=== PATIENT | male | born 1965 | race African-American/Black ===

== ENCOUNTER 2022-02-04 13:17 | Emergency (ER) | payer OTHER ==
[2022-02-04 13:40] VITALS: BP 141/87; PULSE 100; TEMP 97.5; BMI 19.5
[2022-02-04] MEDS ORDERED: KETOROLAC TROMETHAMINE 30 MG/1 ML VIAL IM ONE (14:59)
[2022-02-04] MEDS ORDERED: KETOROLAC TROMETHAMINE 30 MG/1 ML VIAL ONE (15:01)
== END 2022-02-04 15:22 | disposition home or self-care (01) ==
LOC: JERFT 13:17
PROC: 3E0233Z Introduction of Anti-inflammatory into Muscle, Percutaneous Approach (ICD-10-PCS; principal; 2022-02-04)
DX: M54.50 Low back pain, unspecified (principal)
CPT/HCPCS: 99284-25; 99285-25

== ENCOUNTER 2022-02-12 04:43 | Day surgery (SDC) | payer OTHER ==
[2022-02-11 09:48] VITALS: BMI 20.7
[~2022-02-12 04:43] MED LIST: BUPIVACAINE HCL/PF 0.75% 10 ML VIAL MM ONE
[2022-02-12] MEDS ORDERED: LIDOCAINE HCL/PF 1% SDV 5ML VIAL ONE (07:49)
[2022-02-12] MEDS ORDERED: BUPIVACAINE HCL/PF 0.75% 10 ML VIAL ONE (07:49)
[2022-02-12] MEDS ORDERED: LIDOCAINE HCL 1% PRESERVATIVE FREE - 30ML VIAL IJ ONE (10:42)
[2022-02-12] MEDS ORDERED: BUPIVACAINE HCL/PF 0.75% 10 ML VIAL MM ONE (10:48)
[2022-02-12 13:08] VITALS: BP 145/78; PULSE 80; RESP 20; TEMP 97.2
== END 2022-02-12 11:40 | disposition home or self-care (01) ==
LOC: JASU-SURG 04:43
PROVIDERS: ATTEND Pain Medicine Pain Medicine
PROC: BR16YZZ Fluoroscopy of Lumbar Facet Joint(s) using Other Contrast (ICD-10-PCS; 2022-02-12)
PROC: 3E0T3BZ Introduction of Anesthetic Agent into Peripheral Nerves and Plexi, Percutaneous Approach (ICD-10-PCS; principal; 2022-02-12 11:15)
DX: M47.816 Spondylosis without myelopathy or radiculopathy, lumbar region (principal)
CPT/HCPCS: 76000-TC-FY

== ENCOUNTER 2022-02-22 15:28 | Emergency (ER) | payer OTHER ==
[2022-02-22 15:51] VITALS: BP 98/66; PULSE 86; RESP 17; TEMP 98.1; BMI 20.7
[2022-02-22] MEDS ORDERED: MAG HYDROX/AL HYDROX/SIMETH 30 ML UNIT-DOSE CUP PO ONE (16:57)
[2022-02-22] MEDS ORDERED: FAMOTIDINE 20 MG/50 ML IVPB 20 MG/50 ML MG IVPB ONE ×2 (16:57→17:14)
[2022-02-22] MEDS ORDERED: ACETAMINOPHEN 1000 MG/100 ML BAG IVPB ONE (16:57)
[2022-02-22] MEDS ORDERED: SODIUM CHLORIDE 0.9% 500 ML INFUS.BAG IV ONE (16:57)
[2022-02-22] MEDS ORDERED: ACETAMINOPHEN INJECTION 100 ML IVPB ONE (17:14)
[2022-02-22] MEDS ORDERED: MAG HYDROX/AL HYDROX/SIMETH 30 ML UNIT-DOSE CUP ONE (17:14)
[2022-02-22 17:42] LABS: BASO % 0.8 % (0-2.0); EOS % 6.2 % (0-4.5); HEMATOCRIT 40.8 % (35.4-49); HEMOGLOBIN 13.7 GM/dL (11.7-16.9); LYMPH % 42.4 % (8-40); MCH 31.8 pg (25.7-33.7); MCHC 33.7 g/dl (32.0-35.9); MEAN CELL VOLUME 94.4 fl (80-96); MEAN PLT VOLUME 8.1 fl (7.5-11.1); MONO % 9.7 % (3.8-10.2); NEUT % 40.9 % (42.8-82.8); PLATELET COUNT 197 10^3/uL (134-434); RBC 4.32 M/mm3 (4.00-5.60); RDW 12.3 % (11.9-15.9); WHITE BLOOD COUNT 3.4 K/mm3 (4.0-10.0)
[2022-02-22 18:06] LABS: BLOOD UREA NITROGEN 8.7 mg/dL (7-18)
[2022-02-22 18:09] LABS: CREATININE 0.9 mg/dL (0.55-1.3)
[2022-02-22 18:10] LABS: BILIRUBIN,TOTAL 0.5 mg/dL (0.2-1); TOT PROT 7.3 g/dl (6.4-8.2)
== END 2022-02-22 18:54 | disposition home or self-care (01) ==
LOC: JER 15:28
PROC: 3E033GC Introduction of Other Therapeutic Substance into Peripheral Vein, Percutaneous Approach (ICD-10-PCS; principal; 2022-02-22)
DX: R10.84 Generalized abdominal pain (principal)
CPT/HCPCS: 36415; 80053; 82272; 83690; 85025; 99284-25

== ENCOUNTER 2022-04-14 14:15 | Emergency (ER) | payer OTHER ==
[2022-04-14 14:29] VITALS: TEMP 98; BMI 19.4
[2022-04-14] MEDS ORDERED: MAG HYDROX/AL HYDROX/SIMETH -MYLANTA- ORAL SUSPENSION PO ONE (15:53)
[2022-04-14] MEDS ORDERED: FAMOTIDINE 20 MG/50 ML IVPB 20 MG in PREMIX 50 IVPB ONE (15:53)
[2022-04-14] MEDS ORDERED: SODIUM CHLORIDE 1,000 ML IV ONE (15:55)
[2022-04-14] MEDS ORDERED: FAMOTIDINE 20 MG/50 ML IVPB 20 MG/50 ML MG IVPB ONE (16:06)
[2022-04-14] MEDS ORDERED: MAG HYDROX/AL HYDROX/SIMETH 30 ML UNIT-DOSE CUP ONE (16:06)
[2022-04-14 17:00] LABS: BASO % 0.9 % (0-2.0); EOS % 8.7 % (0-4.5); HEMATOCRIT 40.1 % (35.4-49); HEMOGLOBIN 13.3 GM/dL (11.7-16.9); LYMPH % 34.4 % (8-40); MCH 32.1 pg (25.7-33.7); MCHC 33.1 g/dl (32.0-35.9); MEAN CELL VOLUME 97.1 fl (80-96); MEAN PLT VOLUME 8.2 fl (7.5-11.1); MONO % 20.3 % (3.8-10.2); NEUT % 35.7 % (42.8-82.8); PLATELET COUNT 187 10^3/uL (134-434); RBC 4.13 M/mm3 (4.00-5.60); RDW 13.1 % (11.9-15.9); WHITE BLOOD COUNT 2.8 K/mm3 (4.0-10.0)
[2022-04-14 17:23] LABS: INR 0.98 (0.83-1.09); PROTHROMBIN TIME (PATIENT) 11.3 SEC (9.7-13.0)
[2022-04-14 17:24] LABS: ALBUMIN 3.9 g/dl (3.4-5.0); BLOOD UREA NITROGEN 10.9 mg/dL (7-18)
[2022-04-14 17:27] LABS: CREATININE 0.7 mg/dL (0.55-1.3)
[2022-04-14 17:28] LABS: BILIRUBIN,TOTAL 0.3 mg/dL (0.2-1); TOT PROT 7.3 g/dl (6.4-8.2)
[2022-04-14 17:29] LABS: ANISOCYTOSIS 0; MACROCYTOSIS 0
[2022-04-14 21:06] VITALS: BP 123/82; PULSE 98; RESP 18
== END 2022-04-14 21:06 | disposition home or self-care (01) ==
LOC: JER 14:15
PROC: 3E033GC Introduction of Other Therapeutic Substance into Peripheral Vein, Percutaneous Approach (ICD-10-PCS; principal; 2022-04-14)
DX: R06.02 Shortness of breath (principal)
CPT/HCPCS: 36415; 71046-TC-FY; 76705-TC; 80053; 83690; 84484; 85025; 85610; 93005; 93010; 99285-25

== ENCOUNTER 2022-05-24 10:41 | Day surgery (SDC) | payer OTHER ==
[2022-05-20 14:34] VITALS: BMI 19.5
[2022-05-24 10:56] VITALS: RESP 18
[2022-05-24 12:32] VITALS: TEMP 98
[2022-05-24 12:33] VITALS: PULSE 78
[2022-05-24 12:34] VITALS: BP 114/65
== END 2022-05-24 12:48 | disposition home or self-care (01) ==
LOC: FASU-ENDO 10:41
PROVIDERS: ATTEND Internal Medicine Gastroenterology
PROC: 0DJD8ZZ Inspection of Lower Intestinal Tract, Via Natural or Artificial Opening Endoscopic (ICD-10-PCS; principal; 2022-05-24 11:52)
DX: Z12.11 Encounter for screening for malignant neoplasm of colon (principal); Z86.010 Personal history of colon polyps; K57.30 Diverticulosis of large intestine without perforation or abscess without bleeding

== ENCOUNTER 2022-07-02 20:07 | Emergency (ER) | payer OTHER ==
[2022-07-02 20:14] VITALS: BP 112/71; PULSE 95; RESP 18; TEMP 98; BMI 18.8
[2022-07-02] MEDS ORDERED: ASPIRIN 81 MG CHEWABLE TABLETS PO ONE (21:21)
[2022-07-02 22:14] LABS: BASO % 0.6 % (0-2.0); HEMATOCRIT 40.2 % (35.4-49); HEMOGLOBIN 13.1 GM/dL (11.7-16.9); LYMPH % 36.9 % (8-40); MCH 31.3 pg (25.7-33.7); MCHC 32.6 g/dl (32.0-35.9); MEAN CELL VOLUME 96.2 fl (80-96); MEAN PLT VOLUME 8.1 fl (7.5-11.1); MONO % 10.9 % (3.8-10.2); NEUT % 45.6 % (42.8-82.8); PLATELET COUNT 270 10^3/uL (134-434); RBC 4.18 M/mm3 (4.00-5.60); RDW 12.6 % (11.9-15.9); WHITE BLOOD COUNT 4.1 K/mm3 (4.0-10.0)
[2022-07-02] MEDS ORDERED: FAMOTIDINE 20 MG/50 ML IVPB 20 MG/50 ML MG IVPB ONE ×2 (22:18→23:03)
[2022-07-02] MEDS ORDERED: MAG HYDROX/AL HYDROX/SIMETH 30 ML UNIT-DOSE CUP PO ONE (22:18)
[2022-07-02 22:21] LABS: INR 1.07 (0.83-1.09); PROTHROMBIN TIME (PATIENT) 12.3 SEC (9.7-13.0)
[2022-07-02 22:23] LABS: ACTIVATED PTT 36.4 SECONDS (25.2-36.5)
[2022-07-02] MEDS ORDERED: ASPIRIN 81 MG CHEWABLE TABLETS ONE (23:03)
[2022-07-02] MEDS ORDERED: MAG HYDROX/AL HYDROX/SIMETH 30 ML UNIT-DOSE CUP ONE (23:03)
[2022-07-02 23:49] LABS: ALBUMIN 3.8 g/dl (3.4-5.0); BLOOD UREA NITROGEN 13.9 mg/dL (7-18); MAGNESIUM 2.1 mg/dL (1.8-2.4)
[2022-07-02 23:52] LABS: CREATININE 0.9 mg/dL (0.55-1.3)
[2022-07-02 23:55] LABS: BILIRUBIN,TOTAL 0.4 mg/dL (0.2-1); TOT PROT 7.2 g/dl (6.4-8.2)
== END 2022-07-03 00:44 | disposition home or self-care (01) ==
LOC: JER 20:07
PROC: 3E033GC Introduction of Other Therapeutic Substance into Peripheral Vein, Percutaneous Approach (ICD-10-PCS; principal; 2022-07-02)
DX: R07.89 Other chest pain (principal); R06.02 Shortness of breath; R63.8 Other symptoms and signs concerning food and fluid intake
CPT/HCPCS: 0241U-QW; 36415; 71045-TC-FY; 80053; 83735; 84443; 84484; 85025; 85610; 85730; 93005; 93010; 99285-25

== ENCOUNTER 2022-09-14 10:23 | Observation (INO) | payer OTHER ==
[2022-09-14 10:34] VITALS: BMI 17.2
[2022-09-14] MEDS ORDERED: SODIUM CHLORIDE 1,000 ML IV STA (12:44)
[2022-09-14 13:05] LABS: BASO % 0.6 % (0-2.0); EOS % 2.7 % (0-4.5); HEMATOCRIT 42.8 % (35.4-49); HEMOGLOBIN 14.1 GM/dL (11.7-16.9); LYMPH % 21.8 % (8-40); MCH 31.5 pg (25.7-33.7); MCHC 32.9 g/dl (32.0-35.9); MEAN CELL VOLUME 95.8 fl (80-96); MEAN PLT VOLUME 8.7 fl (7.5-11.1); MONO % 6.3 % (3.8-10.2); NEUT % 68.6 % (42.8-82.8); PLATELET COUNT 168 10^3/uL (134-434); RBC 4.47 M/mm3 (4.00-5.60); RDW 13.1 % (11.9-15.9); WHITE BLOOD COUNT 3.2 K/mm3 (4.0-10.0)
[2022-09-14 13:11] LABS: INR 1.03 (0.83-1.09)
[2022-09-14 13:14] LABS: ACTIVATED PTT 28.8 SECONDS (25.2-36.5)
[2022-09-14 13:31] LABS: CALCIUM 8.2 mg/dL (8.5-10.1)
[2022-09-14 13:32] LABS: ALBUMIN 3.5 g/dl (3.4-5.0); BLOOD UREA NITROGEN 13.3 mg/dL (7-18)
[2022-09-14 13:35] LABS: CREATININE 0.6 mg/dL (0.55-1.3)
[2022-09-14 13:36] LABS: BILIRUBIN,TOTAL 0.4 mg/dL (0.2-1); TOT PROT 6.4 g/dl (6.4-8.2)
[2022-09-14 14:26] LABS: HIV INTERPRETATION NEGATIVE (NEGATIVE)
[2022-09-15 08:09] LABS: BASO % 0.4 % (0-2.0); EOS % 6.4 % (0-4.5); HEMATOCRIT 41.8 % (35.4-49); HEMOGLOBIN 14.1 GM/dL (11.7-16.9); LYMPH % 49.4 % (8-40); MCH 32.2 pg (25.7-33.7); MCHC 33.6 g/dl (32.0-35.9); MEAN CELL VOLUME 95.8 fl (80-96); MEAN PLT VOLUME 8.9 fl (7.5-11.1); MONO % 8.2 % (3.8-10.2); NEUT % 35.6 % (42.8-82.8); PLATELET COUNT 173 10^3/uL (134-434); RBC 4.36 M/mm3 (4.00-5.60); RDW 12.9 % (11.9-15.9)
[2022-09-15 08:27] LABS: CALCIUM 8.8 mg/dL (8.5-10.1)
[2022-09-15 08:28] LABS: BLOOD UREA NITROGEN 17.5 mg/dL (7-18)
[2022-09-15 08:31] LABS: CREATININE 0.7 mg/dL (0.55-1.3)
[2022-09-15] MEDS ORDERED: LISINOPRIL 5 MG TABLET ONE (08:52)
[2022-09-15] MEDS: LISINOPRIL 5 MG TABLET PO SCH (09:18)
[2022-09-15] MEDS: HEPARIN NA (PORCINE) 5,000 UNITS/ML 1ML VIAL SQ SCH (22:02)
[2022-09-16] MEDS: HEPARIN NA (PORCINE) 5,000 UNITS/ML 1ML VIAL SQ SCH ×3 (05:44→22:05)
[2022-09-16 08:32] LABS: BILIRUBIN,TOTAL 0.4 mg/dL (0.2-1); BLOOD UREA NITROGEN 11.3 mg/dL (7-18); CALCIUM 9.1 mg/dL (8.5-10.1); CREATININE 0.8 mg/dL (0.55-1.3); TOT PROT 7.7 g/dl (6.4-8.2)
[2022-09-16 08:36] LABS: BASO % 0.5 % (0-2.0); EOS % 5.7 % (0-4.5); HEMATOCRIT 43.7 % (35.4-49); HEMOGLOBIN 14.9 GM/dL (11.7-16.9); LYMPH % 44.5 % (8-40); MCH 32.8 pg (25.7-33.7); MCHC 34.1 g/dl (32.0-35.9); MEAN CELL VOLUME 96.3 fl (80-96); MEAN PLT VOLUME 9.2 fl (7.5-11.1); MONO % 8.1 % (3.8-10.2); NEUT % 41.2 % (42.8-82.8); PLATELET COUNT 186 10^3/uL (134-434); RBC 4.54 M/mm3 (4.00-5.60); RDW 12.8 % (11.9-15.9); WHITE BLOOD COUNT 3.1 K/mm3 (4.0-10.0)
[2022-09-16] MEDS: LISINOPRIL 5 MG TABLET PO SCH (10:15)
[2022-09-16] MEDS ORDERED: INSULIN (NOVOLOG) ASPART 100 UNITS/ML 10ML VIAL ONE (11:11)
[2022-09-17] MEDS: HEPARIN NA (PORCINE) 5,000 UNITS/ML 1ML VIAL SQ SCH ×3 (05:53→22:20)
[2022-09-17] MEDS: LISINOPRIL 5 MG TABLET PO SCH (10:00)
[2022-09-17 21:46] LABS: BASO % 0.9 % (0-2.0); EOS % 6.5 % (0-4.5); HEMATOCRIT 39.2 % (35.4-49); HEMOGLOBIN 13.1 GM/dL (11.7-16.9); LYMPH % 35.8 % (8-40); MCH 32.1 pg (25.7-33.7); MCHC 33.4 g/dl (32.0-35.9); MEAN CELL VOLUME 96.2 fl (80-96); MEAN PLT VOLUME 8.8 fl (7.5-11.1); NEUT % 46.8 % (42.8-82.8); PLATELET COUNT 154 10^3/uL (134-434); RBC 4.07 M/mm3 (4.00-5.60); RDW 12.9 % (11.9-15.9); WHITE BLOOD COUNT 3.2 K/mm3 (4.0-10.0)
[2022-09-17 22:05] LABS: CALCIUM 8.9 mg/dL (8.5-10.1)
[2022-09-17 22:06] LABS: ALBUMIN 3.7 g/dl (3.4-5.0); BLOOD UREA NITROGEN 22.2 mg/dL (7-18); MAGNESIUM 2.1 mg/dL (1.8-2.4)
[2022-09-17 22:09] LABS: CREATININE 0.9 mg/dL (0.55-1.3); PHOSPHOROUS 3.2 mg/dL (2.5-4.9)
[2022-09-17 22:10] LABS: TOT PROT 6.8 g/dl (6.4-8.2)
[2022-09-17 22:11] LABS: BILIRUBIN,TOTAL 0.4 mg/dL (0.2-1)
[2022-09-17] MEDS: POLYETHYLENE GLYCOL (HEALTHYLAX) 3350 17 GM PACKET PO SCH (22:20)
[2022-09-18] MEDS: HEPARIN NA (PORCINE) 5,000 UNITS/ML 1ML VIAL SQ SCH ×3 (06:12→21:35)
[2022-09-18 08:28] LABS: BASO % 0.4 % (0-2.0); EOS % 6.9 % (0-4.5); HEMATOCRIT 44.7 % (35.4-49); HEMOGLOBIN 14.5 GM/dL (11.7-16.9); LYMPH % 36.3 % (8-40); MCH 31.2 pg (25.7-33.7); MCHC 32.5 g/dl (32.0-35.9); MEAN CELL VOLUME 95.9 fl (80-96); MEAN PLT VOLUME 9.2 fl (7.5-11.1); MONO % 11.7 % (3.8-10.2); NEUT % 44.7 % (42.8-82.8); PLATELET COUNT 168 10^3/uL (134-434); RBC 4.66 M/mm3 (4.00-5.60); RDW 13.2 % (11.9-15.9); WHITE BLOOD COUNT 3.1 K/mm3 (4.0-10.0)
[2022-09-18 08:41] LABS: CHLORIDE 101 mmol/L (98-107); SODIUM 141 mmol/L (136-145)
[2022-09-18 09:01] LABS: BLOOD UREA NITROGEN 17.8 mg/dL (7-18)
[2022-09-18 09:02] LABS: ALBUMIN 3.8 g/dl (3.4-5.0); ANION GAP 3 MMOL/L (8-16); CO2 36 mmol/L (21-32); GLUCOSE,RANDOM 81 mg/dL (74-106)
[2022-09-18 09:03] LABS: MAGNESIUM 2.2 mg/dL (1.8-2.4)
[2022-09-18 09:04] LABS: CREATININE 0.7 mg/dL (0.55-1.3); SGPT/ALT 118 U/L (13-61)
[2022-09-18 09:05] LABS: PHOSPHOROUS 4.3 mg/dL (2.5-4.9); SGOT/AST 89 U/L (15-37)
[2022-09-18 09:06] LABS: BILIRUBIN,TOTAL 0.6 mg/dL (0.2-1); TOT PROT 7.3 g/dl (6.4-8.2)
[2022-09-18 09:07] LABS: ALK PHOS 64 U/L (45-117)
[2022-09-18 09:23] LABS: ERYTHROCYTE SEDIMENTATION RATE 4 mm/hr (0-20)
[2022-09-18] MEDS: POLYETHYLENE GLYCOL (HEALTHYLAX) 3350 17 GM PACKET PO SCH ×2 (09:44→21:35)
[2022-09-19] MEDS: HEPARIN NA (PORCINE) 5,000 UNITS/ML 1ML VIAL SQ SCH ×3 (06:34→21:16)
[2022-09-19 06:53] LABS: F001 EGG WHITE <0.10 kU/L (Class 0); F018 BRAZIL NUT < 0.10 kU/L (Class 0); F201 PECAN NUT < 0.10 kU/L (Class 0)
[2022-09-19 08:18] LABS: BASO % 0.4 % (0-2.0); EOS % 7.6 % (0-4.5); HEMATOCRIT 44.1 % (35.4-49); HEMOGLOBIN 14.8 GM/dL (11.7-16.9); LYMPH % 49.7 % (8-40); MCH 32.2 pg (25.7-33.7); MCHC 33.6 g/dl (32.0-35.9); MEAN CELL VOLUME 95.9 fl (80-96); MEAN PLT VOLUME 9.3 fl (7.5-11.1); MONO % 8.6 % (3.8-10.2); NEUT % 33.7 % (42.8-82.8); PLATELET COUNT 189 10^3/uL (134-434); WHITE BLOOD COUNT 2.7 K/mm3 (4.0-10.0)
[2022-09-19 08:32] LABS: CALCIUM 9.1 mg/dL (8.5-10.1)
[2022-09-19 08:33] LABS: BLOOD UREA NITROGEN 15.3 mg/dL (7-18); MAGNESIUM 2.1 mg/dL (1.8-2.4)
[2022-09-19 08:35] LABS: CREATININE 0.7 mg/dL (0.55-1.3)
[2022-09-19 08:37] LABS: BILIRUBIN,TOTAL 0.5 mg/dL (0.2-1); TOT PROT 7.8 g/dl (6.4-8.2)
[2022-09-19 08:45] VITALS: RESP 18
[2022-09-19 08:58] LABS: HEPATITIS B SURFACE AG MATERN NON-REACTIVE (NONREACTIVE)
[2022-09-19 09:18] LABS: BILIRUBIN,DIRECT 0.2 mg/dL (0.0-0.2)
[2022-09-19] MEDS: POLYETHYLENE GLYCOL (HEALTHYLAX) 3350 17 GM PACKET PO SCH ×2 (09:26→21:16)
[2022-09-19] MEDS ORDERED: PANTOPRAZOLE 40 MG TABLET PO SCH (22:00)
[2022-09-20 06:22] VITALS: TEMP 97.7
[2022-09-20] MEDS: HEPARIN NA (PORCINE) 5,000 UNITS/ML 1ML VIAL SQ SCH (06:30)
[2022-09-20 08:09] LABS: BASO % 0.6 % (0-2.0); EOS % 7.5 % (0-4.5); HEMATOCRIT 40.2 % (35.4-49); HEMOGLOBIN 13.6 GM/dL (11.7-16.9); MCH 32.4 pg (25.7-33.7); MCHC 33.9 g/dl (32.0-35.9); MEAN CELL VOLUME 95.5 fl (80-96); MEAN PLT VOLUME 8.7 fl (7.5-11.1); MONO % 11.6 % (3.8-10.2); NEUT % 33.3 % (42.8-82.8); PLATELET COUNT 167 10^3/uL (134-434); RBC 4.21 M/mm3 (4.00-5.60); RDW 13.1 % (11.9-15.9); WHITE BLOOD COUNT 2.5 K/mm3 (4.0-10.0)
[2022-09-20 08:42] LABS: ALBUMIN 3.8 g/dl (3.4-5.0); BLOOD UREA NITROGEN 16.1 mg/dL (7-18); CALCIUM 9.2 mg/dL (8.5-10.1)
[2022-09-20 08:43] LABS: MAGNESIUM 2.2 mg/dL (1.8-2.4)
[2022-09-20 08:44] LABS: PHOSPHOROUS 3.9 mg/dL (2.5-4.9)
[2022-09-20 08:45] LABS: BILIRUBIN,TOTAL 0.5 mg/dL (0.2-1); CREATININE 0.8 mg/dL (0.55-1.3); TOT PROT 7.4 g/dl (6.4-8.2)
[2022-09-20] MEDS: POLYETHYLENE GLYCOL (HEALTHYLAX) 3350 17 GM PACKET PO SCH (09:57)
[2022-09-20 10:03] VITALS: BP 125/74; PULSE 97
== END 2022-09-20 13:50 | disposition home or self-care (01) ==
LOC: JER 10:23 → JERBED 16:38 → J4W 09-15 14:03
PROVIDERS: ADMIT Internal Medicine; ATTEND Internal Medicine
PROC: 3E023GC Introduction of Other Therapeutic Substance into Muscle, Percutaneous Approach (ICD-10-PCS; principal; 2022-09-14)
PROC: 3E0337Z Introduction of Electrolytic and Water Balance Substance into Peripheral Vein, Percutaneous Approach (ICD-10-PCS; 2022-09-14)
DX: K21.9 Gastro-esophageal reflux disease without esophagitis (principal); K57.90 Diverticulosis of intestine, part unspecified, without perforation or abscess without bleeding; R10.9 Unspecified abdominal pain; R42 Dizziness and giddiness; R63.4 Abnormal weight loss; R55 Syncope and collapse; R06.02 Shortness of breath; I10 Essential (primary) hypertension
CPT/HCPCS: 0241U-QW; 36415; 70551-TC; 71045-TC-FY; 71275-TC; 74174-TC; 74177-TC; 74183-TC; 80048; 80053; 82248; 83735; 84100; 84153; 84439; 84443; 84484; 85025; 85379; 85610; 85651; 85730; 86003; 86140; 86301; 86376; 86480; 86682; 86704; 86706; 86709; 87040; 87209; 87338; 87340; 87389; 87517; 87902; 93005; 93010; 93306-TC; 96360; 96372; 99285-25; G0378; J1644; Q9967

== ENCOUNTER 2022-10-14 15:05 | Emergency (ER) | payer OTHER ==
[2022-10-14 15:21] VITALS: TEMP 97.9; BMI 17.2
[2022-10-14] MEDS ORDERED: FAMOTIDINE 10 MG TABLET PO ONE (16:21)
[2022-10-14] MEDS ORDERED: FAMOTIDINE 20 MG TABLET ONE (16:37)
[2022-10-14 18:16] LABS: BASO % 1.3 % (0-2.0); EOS % 4.9 % (0-4.5); HEMATOCRIT 41.6 % (35.4-49); HEMOGLOBIN 13.6 GM/dL (11.7-16.9); LYMPH % 46.5 % (8-40); MCH 31.2 pg (25.7-33.7); MCHC 32.7 g/dl (32.0-35.9); MEAN CELL VOLUME 95.4 fl (80-96); MEAN PLT VOLUME 8.9 fl (7.5-11.1); MONO % 11.6 % (3.8-10.2); NEUT % 35.7 % (42.8-82.8); PLATELET COUNT 158 10^3/uL (134-434); RBC 4.36 M/mm3 (4.00-5.60); RDW 12.9 % (11.9-15.9); WHITE BLOOD COUNT 2.6 K/mm3 (4.0-10.0)
[2022-10-14 18:25] LABS: INR 1.01 (0.83-1.09); PROTHROMBIN TIME (PATIENT) 11.7 SEC (9.7-13.0)
[2022-10-14 18:28] LABS: ACTIVATED PTT 34.6 SECONDS (25.2-36.5)
[2022-10-14 18:33] LABS: ALBUMIN 3.8 g/dl (3.4-5.0); BLOOD UREA NITROGEN 13.8 mg/dL (7-18)
[2022-10-14 18:36] LABS: CREATININE 0.6 mg/dL (0.55-1.3)
[2022-10-14 18:38] LABS: BILIRUBIN,TOTAL 0.4 mg/dL (0.2-1); TOT PROT 7.1 g/dl (6.4-8.2)
[2022-10-14 19:15] VITALS: BP 127/89; PULSE 78; RESP 18
== END 2022-10-14 20:26 | disposition home or self-care (01) ==
LOC: JER 15:05
DX: R07.9 Chest pain, unspecified (principal)
CPT/HCPCS: 36415; 71046-TC-FY; 80053; 84484; 85025; 85610; 85730; 93005; 93010; 99285-25

== ENCOUNTER 2022-11-22 04:29 | Inpatient (IN) | payer OTHER ==
[2022-11-22] MEDS ORDERED: ROCURONIUM BROMIDE 50 MG/5 ML SYRINGE ONE ×2 (15:55→17:36)
[2022-11-22] MEDS ORDERED: PROPOFOL 20 ML ONE (15:55)
[2022-11-22] MEDS ORDERED: SUCCINYLCHOLINE CHLORIDE 200 MG/10 ML SYRINGE ONE (15:55)
[2022-11-22] MEDS ORDERED: MIDAZOLAM HCL 2 MG/2 ML SINGLE DOSE VIAL ONE ×3 (16:11→22:27)
[2022-11-22] MEDS ORDERED: ceFAZolin SODIUM 1 GM VIAL IVPB ONE (16:20)
[2022-11-22] MEDS ORDERED: NEOSTIGMINE METHYLSULFATE 0.5 MG/1 ML - 10 ML MDV ONE (19:01)
[2022-11-22] MEDS ORDERED: ONDANSETRON 4 MG/2 ML VIAL IVPUSH PRN (20:12)
[2022-11-22] MEDS ORDERED: LACTATED RINGERS SOLUTION 1,000 ML IV SCH (20:15)
[2022-11-22 21:26] LABS: ARTERIAL BLD GAS O2 SATURATION 97.6 % (95-98); ARTERIAL BLOOD GAS BASE EXCESS -3.6 mmol/L (-2-2); ARTERIAL BLOOD GAS PO2 171.3 mmHg (80-100)
[2022-11-22 21:27] LABS: ALLENS TEST POSITIVE
[2022-11-22 21:34] LABS: ARTERIAL BLOOD GAS PCO2 > 148.50 mmHg (35-45); ARTERIAL BLOOD GAS pH 6.906 (7.350-7.450)
[2022-11-22] MEDS ORDERED: ASPIRIN 81 MG CHEWABLE TABLETS PO ONE (21:40)
[2022-11-22 21:44] LABS: BASO % 0.2 % (0-2.0); EOS % 0.1 % (0-4.5); HEMATOCRIT 41.3 % (35.4-49); HEMOGLOBIN 13.2 GM/dL (11.7-16.9); MCH 31.1 pg (25.7-33.7); MCHC 32.1 g/dl (32.0-35.9); MEAN CELL VOLUME 96.9 fl (80-96); MEAN PLT VOLUME 8.9 fl (7.5-11.1); MONO % 5.9 % (3.8-10.2); NEUT % 86.8 % (42.8-82.8); PLATELET COUNT 166 10^3/uL (134-434); RBC 4.26 M/mm3 (4.00-5.60); WHITE BLOOD COUNT 11.1 K/mm3 (4.0-10.0)
[2022-11-22] MEDS ORDERED: SODIUM CHLORIDE 1,000 ML IV SCH (21:45)
[2022-11-22 21:56] LABS: INR 1.13 (0.83-1.09); PROTHROMBIN TIME (PATIENT) 13.1 SEC (9.7-13.0)
[2022-11-22] MEDS ORDERED: PROPOFOL 1,000,000 MCG/100 ML VIAL ONE (21:57)
[2022-11-22 22:00] LABS: POTASSIUM 3.9 mmol/L (3.5-5.1)
[2022-11-22 22:03] LABS: BLOOD UREA NITROGEN 9.3 mg/dL (7-18)
[2022-11-22 22:04] LABS: ALBUMIN 3.3 g/dl (3.4-5.0)
[2022-11-22] MEDS ORDERED: SODIUM BICARBONATE 8.4% 50 MEQ/50 ML DISP.SYRIN IVPUSH STA (22:04)
[2022-11-22] MEDS ORDERED: PHENYLEPHRINE HCL 10 MG/1 ML SINGLE DOSE VIAL ONE (22:05)
[2022-11-22] MEDS ORDERED: SODIUM BICARBONATE 8.4% 50 MEQ/50 ML DISP.SYRIN ONE (22:05)
[2022-11-22 22:06] LABS: BILIRUBIN,DIRECT 0.2 mg/dL (0.0-0.2); CREATININE 0.7 mg/dL (0.55-1.3)
[2022-11-22 22:08] LABS: BILIRUBIN,TOTAL 0.4 mg/dL (0.2-1); TOT PROT 6.2 g/dl (6.4-8.2)
[2022-11-22] MEDS ORDERED: LACTATED RINGERS SOLUTION 1,000 ML/1,000 ML INFUS.BAG IV STA (22:08)
[2022-11-22 22:14] LABS: LACTIC ACID 2.4 mmol/L (0.4-2.0)
[2022-11-22] MEDS ORDERED: PHENYLEPHRINE NS PREMIX 50,000 MCG/500 ML BAG CVP SCH (22:15)
[2022-11-22] MEDS ORDERED: MIDAZOLAM HCL 2 MG/2 ML SINGLE DOSE VIAL IVPUSH STA (22:25)
[2022-11-22] MEDS: PROPOFOL 1,000,000 MCG/100 ML VIAL IVPB SCH (22:47)
[2022-11-22] MEDS ORDERED: LACTATED RINGERS SOLUTION 1,000 ML/1,000 ML INFUS.BAG IV SCH (23:15)
[2022-11-22] MEDS: ACETAMINOPHEN 1000 MG/100 ML BAG IVPB SCH (23:26)
[2022-11-22] MEDS: METOCLOPRAMIDE HCL INJECTION 10 MG/2 ML VIAL IVPUSH SCH (23:26)
[2022-11-23] LABS: POTASSIUM 4.3 mmol/L (3.5-5.1)
[2022-11-23 00:01] LABS: CALCIUM 8.2 mg/dL (8.5-10.1)
[2022-11-23 00:03] LABS: INR 1.11 (0.83-1.09); PROTHROMBIN TIME (PATIENT) 12.9 SEC (9.7-13.0)
[2022-11-23 00:06] LABS: ACTIVATED PTT 27.9 SECONDS (25.2-36.5)
[2022-11-23] MEDS: ACETAMINOPHEN 1000 MG/100 ML BAG IVPB SCH ×5 (00:30→16:12)
[2022-11-23 00:43] LABS: BLOOD UREA NITROGEN 10.5 mg/dL (7-18)
[2022-11-23] MEDS ORDERED: ONDANSETRON 4 MG/2 ML VIAL IVPUSH SCH (01:00)
[2022-11-23 03:28] LABS: ARTERIAL BLD GAS O2 SATURATION 99.9 % (95-98); ARTERIAL BLOOD GAS BASE EXCESS 5.9 mmol/L (-2-2); ARTERIAL BLOOD GAS PO2 361.2 mmHg (80-100)
[2022-11-23 03:44] LABS: ALLENS TEST POSITIVE
[2022-11-23 03:45] LABS: VENT MODE V-A/C; VENT RATE 26
[2022-11-23] MEDS: PROPOFOL 1,000,000 MCG/100 ML VIAL IVPB SCH (03:50)
[2022-11-23] MEDS: ALBUTEROL SO4 0.083% IH SOL 2.5 MG/3 ML VIAL.NEB. NEB SCH ×6 (04:07→20:39)
[2022-11-23] MEDS: METOCLOPRAMIDE HCL INJECTION 10 MG/2 ML VIAL IVPUSH SCH ×3 (05:34→21:07)
[2022-11-23] MEDS ORDERED: ALBUTEROL SO4 0.083% IH SOL 2.5 MG/3 ML VIAL.NEB. NEB STA (06:31)
[2022-11-23 07:14] LABS: HEMATOCRIT 35.7 % (35.4-49); HEMOGLOBIN 12.2 GM/dL (11.7-16.9); MCH 31.8 pg (25.7-33.7); MEAN CELL VOLUME 93.5 fl (80-96); MEAN PLT VOLUME 9.2 fl (7.5-11.1); PLATELET COUNT 130 10^3/uL (134-434); RBC 3.82 M/mm3 (4.00-5.60); RDW 12.8 % (11.9-15.9); WHITE BLOOD COUNT 9.8 K/mm3 (4.0-10.0)
[2022-11-23 07:35] LABS: POTASSIUM 3.5 mmol/L (3.5-5.1)
[2022-11-23 07:39] LABS: BLOOD UREA NITROGEN 11.6 mg/dL (7-18); CALCIUM 8.5 mg/dL (8.5-10.1)
[2022-11-23 07:40] LABS: MAGNESIUM 1.4 mg/dL (1.8-2.4); PHOSPHOROUS 1.7 mg/dL (2.5-4.9)
[2022-11-23] MEDS ORDERED: MAGNESIUM SULF 50% (8.12 MEQ/2 ML-1 GM VIAL) IVPB ONE (07:56)
[2022-11-23] MEDS ORDERED: POTASSIUM PHOSPHATE 30 MM in SODIUM CHLORIDE 250 ML IVPB ONE (09:00)
[2022-11-23] MEDS ORDERED: SODIUM CHLORIDE 1,000 ML IV STA (09:00)
[2022-11-23] MEDS ORDERED: KETOROLAC TROMETHAMINE 30 MG/1 ML VIAL IM PRN (09:01)
[2022-11-23] MEDS: ONDANSETRON 4 MG/2 ML VIAL IVPUSH SCH ×2 (09:36→16:13)
[2022-11-23] MEDS: PANTOPRAZOLE SODIUM 40 MG VIAL IVPUSH SCH (09:36)
[2022-11-23] MEDS ORDERED: DOCUSATE SODIUM 100 MG CAPSULE (FP) PO PRN (09:38)
[2022-11-23 11:21] VITALS: BMI 17.6
[2022-11-23] MEDS ORDERED: NAPH,MB-DB/K PH,MBDB POWDER PACKET PO ONE (11:44)
[2022-11-23 15:54] LABS: MAGNESIUM 2.1 mg/dL (1.8-2.4)
[2022-11-23 15:58] LABS: PHOSPHOROUS 5.2 mg/dL (2.5-4.9)
[2022-11-23] MEDS: HEPARIN NA (PORCINE) 5,000 UNITS/ML 1ML VIAL SQ SCH (21:07)
[2022-11-23] MEDS: ATORVASTATIN CA 80 MG TABLET (FP) PO SCH (21:07)
[2022-11-24] MEDS: ALBUTEROL SO4 0.083% IH SOL 2.5 MG/3 ML VIAL.NEB. NEB SCH ×7 (00:05→23:30)
[2022-11-24] MEDS: METOCLOPRAMIDE HCL INJECTION 10 MG/2 ML VIAL IVPUSH SCH ×3 (06:07→21:22)
[2022-11-24] MEDS: ONDANSETRON 4 MG/2 ML VIAL IVPUSH SCH ×3 (06:07→17:41)
[2022-11-24 07:11] LABS: BASO % 0.3 % (0-2.0); EOS % 0.2 % (0-4.5); HEMATOCRIT 35.2 % (35.4-49); HEMOGLOBIN 11.9 GM/dL (11.7-16.9); LYMPH % 9.5 % (8-40); MCH 32.4 pg (25.7-33.7); MCHC 33.8 g/dl (32.0-35.9); MEAN PLT VOLUME 9.3 fl (7.5-11.1); MONO % 6.6 % (3.8-10.2); NEUT % 83.4 % (42.8-82.8); PLATELET COUNT 106 10^3/uL (134-434); RBC 3.66 M/mm3 (4.00-5.60); RDW 13.2 % (11.9-15.9); WHITE BLOOD COUNT 8.7 K/mm3 (4.0-10.0)
[2022-11-24 07:36] LABS: POTASSIUM 4.4 mmol/L (3.5-5.1)
[2022-11-24 07:37] LABS: BLOOD UREA NITROGEN 5.7 mg/dL (7-18); CALCIUM 8.1 mg/dL (8.5-10.1); MAGNESIUM 1.9 mg/dL (1.8-2.4)
[2022-11-24 07:39] LABS: ALBUMIN 2.9 g/dl (3.4-5.0)
[2022-11-24 07:41] LABS: CREATININE 0.6 mg/dL (0.55-1.3); PHOSPHOROUS 3.3 mg/dL (2.5-4.9)
[2022-11-24 07:43] LABS: BILIRUBIN,TOTAL 0.5 mg/dL (0.2-1); TOT PROT 5.7 g/dl (6.4-8.2)
[2022-11-24] MEDS: PANTOPRAZOLE SODIUM 40 MG VIAL IVPUSH SCH (09:36)
[2022-11-24] MEDS: HEPARIN NA (PORCINE) 5,000 UNITS/ML 1ML VIAL SQ SCH ×2 (09:36→21:22)
[2022-11-24] MEDS: oxyCODONE HCL 5 MG TABLET PO PRN ×2 (10:50→21:23)
[2022-11-24] MEDS: ATORVASTATIN CA 80 MG TABLET (FP) PO SCH (21:23)
[2022-11-24] MEDS ORDERED: ALBUTEROL SO4 0.083% IH SOL 2.5 MG/3 ML VIAL.NEB. NEB STA (23:35)
[2022-11-24] MEDS ORDERED: KETOROLAC TROMETHAMINE 30 MG/1 ML VIAL IM PRN (23:35)
[2022-11-24] MEDS ORDERED: DOCUSATE SODIUM 100 MG CAPSULE (FP) PO PRN (23:35)
[2022-11-24] MEDS ORDERED: oxyCODONE HCL 5 MG TABLET PO PRN (23:35)
[2022-11-25] MEDS: ONDANSETRON 4 MG/2 ML VIAL IVPUSH SCH ×3 (02:07→16:12)
[2022-11-25] MEDS: ALBUTEROL SO4 0.083% IH SOL 2.5 MG/3 ML VIAL.NEB. NEB SCH ×5 (04:43→20:05)
[2022-11-25] MEDS: METOCLOPRAMIDE HCL INJECTION 10 MG/2 ML VIAL IVPUSH SCH ×2 (06:01→14:16)
[2022-11-25] MEDS ORDERED: PANTOPRAZOLE SODIUM 40 MG VIAL IVPUSH SCH (10:00)
[2022-11-25] MEDS ORDERED: HEPARIN NA (PORCINE) 5,000 UNITS/ML 1ML VIAL SQ SCH (10:00)
[2022-11-25] MEDS ORDERED: ACETAMINOPHEN 325 MG TABLET (FP) PO PRN (15:37)
[2022-11-25] MEDS ORDERED: ONDANSETRON 4 MG/2 ML VIAL IVPUSH PRN (16:57)
[2022-11-25] MEDS: ATORVASTATIN CA 80 MG TABLET (FP) PO SCH (21:57)
[2022-11-26] MEDS: ALBUTEROL SO4 0.083% IH SOL 2.5 MG/3 ML VIAL.NEB. NEB SCH ×4 (08:10→20:43)
[2022-11-26 08:23] LABS: BASO % 0.3 % (0-2.0); EOS % 0.9 % (0-4.5); HEMATOCRIT 31.2 % (35.4-49); HEMOGLOBIN 10.7 GM/dL (11.7-16.9); LYMPH % 10.5 % (8-40); MCH 32.7 pg (25.7-33.7); MCHC 34.3 g/dl (32.0-35.9); MEAN CELL VOLUME 95.3 fl (80-96); MEAN PLT VOLUME 9.4 fl (7.5-11.1); MONO % 9.1 % (3.8-10.2); NEUT % 79.2 % (42.8-82.8); PLATELET COUNT 105 10^3/uL (134-434); RBC 3.27 M/mm3 (4.00-5.60); RDW 12.6 % (11.9-15.9); WHITE BLOOD COUNT 4.6 K/mm3 (4.0-10.0)
[2022-11-26 08:36] LABS: POTASSIUM 3.8 mmol/L (3.5-5.1)
[2022-11-26 08:43] LABS: ALBUMIN 2.8 g/dl (3.4-5.0); BLOOD UREA NITROGEN 10.8 mg/dL (7-18); CALCIUM 8.4 mg/dL (8.5-10.1); MAGNESIUM 1.8 mg/dL (1.8-2.4)
[2022-11-26 08:44] LABS: CREATININE 0.5 mg/dL (0.55-1.3)
[2022-11-26 08:45] LABS: BILIRUBIN,TOTAL 1.2 mg/dL (0.2-1); TOT PROT 5.6 g/dl (6.4-8.2)
[2022-11-26] MEDS: PANTOPRAZOLE 40 MG TABLET PO SCH (09:58)
[2022-11-26] MEDS: ENOXAPARIN NA (PORCINE) 30 MG/0.3 ML DISP.SYRIN SQ SCH (09:58)
[2022-11-26] MEDS: ATORVASTATIN CA 80 MG TABLET (FP) PO SCH (21:45)
[2022-11-26 22:11] VITALS: RESP 20
[2022-11-26] MEDS ORDERED: MELATONIN 5 MG TABLETS PO ONE (22:17)
[2022-11-27] MEDS: ALBUTEROL SO4 0.083% IH SOL 2.5 MG/3 ML VIAL.NEB. NEB SCH ×2 (07:41→11:30)
[2022-11-27 08:54] LABS: BASO % 0.3 % (0-2.0); EOS % 1.3 % (0-4.5); HEMATOCRIT 33.4 % (35.4-49); HEMOGLOBIN 11.1 GM/dL (11.7-16.9); MCH 31.8 pg (25.7-33.7); MCHC 33.3 g/dl (32.0-35.9); MEAN CELL VOLUME 95.5 fl (80-96); MEAN PLT VOLUME 9.2 fl (7.5-11.1); NEUT % 73.4 % (42.8-82.8); PLATELET COUNT 138 10^3/uL (134-434); RDW 12.2 % (11.9-15.9); WHITE BLOOD COUNT 4.1 K/mm3 (4.0-10.0)
[2022-11-27 09:14] LABS: POTASSIUM 3.8 mmol/L (3.5-5.1)
[2022-11-27 09:21] LABS: CALCIUM 8.6 mg/dL (8.5-10.1)
[2022-11-27 09:22] LABS: BLOOD UREA NITROGEN 9.2 mg/dL (7-18); MAGNESIUM 1.9 mg/dL (1.8-2.4)
[2022-11-27 09:23] LABS: BILIRUBIN,TOTAL 1.3 mg/dL (0.2-1)
[2022-11-27] MEDS: ENOXAPARIN NA (PORCINE) 30 MG/0.3 ML DISP.SYRIN SQ SCH (09:23)
[2022-11-27] MEDS: PANTOPRAZOLE 40 MG TABLET PO SCH (09:23)
[2022-11-27 09:26] LABS: CREATININE 0.5 mg/dL (0.55-1.3)
[2022-11-27 14:51] VITALS: BP 100/62; PULSE 105; TEMP 98.5
== END 2022-11-27 03:00 | DRG 220 ==
LOC: JASU-SURG 04:29 → JERBED 20:24 → JICU 21:52 → J8W 11-24 23:01
PROVIDERS: ADMIT Surgery; ATTEND Nurse Practitioner Acute Care
PROC: 0BJT4ZZ Inspection of Diaphragm, Percutaneous Endoscopic Approach (ICD-10-PCS; 2022-11-22)
PROC: 0DV40ZZ Restriction of Esophagogastric Junction, Open Approach (ICD-10-PCS; 2022-11-22)
PROC: 0DJ08ZZ Inspection of Upper Intestinal Tract, Via Natural or Artificial Opening Endoscopic (ICD-10-PCS; 2022-11-22)
PROC: 0DQ60ZZ Repair Stomach, Open Approach (ICD-10-PCS; 2022-11-22)
PROC: 8E0W0CZ Robotic Assisted Procedure of Trunk Region, Open Approach (ICD-10-PCS; 2022-11-22)
PROC: 5A1935Z Respiratory Ventilation, Less than 24 Consecutive Hours (ICD-10-PCS; 2022-11-22)
PROC: 0BH17EZ Insertion of Endotracheal Airway into Trachea, Via Natural or Artificial Opening (ICD-10-PCS; 2022-11-22)
PROC: 0BQT0ZZ Repair Diaphragm, Open Approach (ICD-10-PCS; principal; 2022-11-22 14:45)
DX: K44.9 Diaphragmatic hernia without obstruction or gangrene (principal); J96.02 Acute respiratory failure with hypercapnia; I95.89 Other hypotension; K21.9 Gastro-esophageal reflux disease without esophagitis; I10 Essential (primary) hypertension; R13.10 Dysphagia, unspecified; R74.01 Elevation of levels of liver transaminase levels; Z53.31 Laparoscopic surgical procedure converted to open procedure; R42 Dizziness and giddiness; K91.81 Other intraoperative complications of digestive system; Y65.8 Other specified misadventures during surgical and medical care
CPT/HCPCS: 36415; 36600; 70450-TC; 70496-TC; 70498-TC; 71045-TC-FY; 74220-TC-FY; 80048; 80053; 80076; 82550; 82553; 82803; 82962; 83036; 83605; 83735; 84100; 84450; 84460; 84484; 85025; 85027; 85384; 85610; 85730; 86850; 86900; 86901; 88305-TC; 93005; 93010; 94002; 94640; 94760; 94761; 97116-GP; 97162-GP; C9803-CS; J1644; U0003; U0005

== ENCOUNTER 2023-03-22 13:03 | Inpatient (IN) | payer OTHER ==
[2023-03-22 16:02] LABS: BASO % 1.3 % (0-2.0); EOS % 1.4 % (0-4.5); HEMATOCRIT 43.3 % (35.4-49); HEMOGLOBIN 14.3 GM/dL (11.7-16.9); LYMPH % 43.6 % (8-40); MCH 30.9 pg (25.7-33.7); MCHC 32.9 g/dl (32.0-35.9); MONO % 8.1 % (3.8-10.2); NEUT % 45.6 % (42.8-82.8); PLATELET COUNT 165 10^3/uL (134-434); RBC 4.61 M/mm3 (4.00-5.60); RDW 13.7 % (11.9-15.9); WHITE BLOOD COUNT 3.4 K/mm3 (4.0-10.0)
[2023-03-22 16:16] LABS: INR 0.97 (0.83-1.09); PROTHROMBIN TIME (PATIENT) 11.3 SEC (9.7-13.0)
[2023-03-22 16:18] LABS: ACTIVATED PTT 34.5 SECONDS (25.2-36.5)
[2023-03-22 16:21] LABS: CALCIUM 8.8 mg/dL (8.5-10.1)
[2023-03-22 16:22] LABS: ALBUMIN 3.7 g/dl (3.4-5.0); BLOOD UREA NITROGEN 10.8 mg/dL (7-18)
[2023-03-22 16:25] LABS: CREATININE 0.6 mg/dL (0.55-1.3)
[2023-03-22 16:27] LABS: BILIRUBIN,TOTAL 0.4 mg/dL (0.2-1); TOT PROT 7.2 g/dl (6.4-8.2)
[2023-03-22] MEDS ORDERED: SODIUM CHLORIDE IV ONE (19:18)
[2023-03-22] MEDS ORDERED: SODIUM CHLORIDE 0.9% 500 ML INFUS.BAG IV ONE (19:19)
[2023-03-22] MEDS ORDERED: MIDAZOLAM HCL 2 MG/2 ML SINGLE DOSE VIAL ONE (23:02)
[2023-03-22] MEDS ORDERED: ROCURONIUM BROMIDE 50 MG/5 ML SYRINGE ONE (23:02)
[2023-03-22] MEDS ORDERED: PROPOFOL 1,000,000 MCG/100 ML VIAL IVPB SCH (23:45)
[2023-03-22 23:48] LABS: ARTERIAL BLD GAS O2 SATURATION 85.6 % (95-98); ARTERIAL BLOOD GAS BASE EXCESS 3.6 mmol/L (-2-2); ARTERIAL BLOOD GAS PO2 58.6 mmHg (80-100); ARTERIAL BLOOD GAS pH 7.269 (7.350-7.450)
[2023-03-22] MEDS ORDERED: ROCURONIUM BROMIDE 50 MG/5 ML VIAL IV ONE (23:48)
[2023-03-22] MEDS ORDERED: MIDAZOLAM HCL 5 MG/1 ML Single Dose Vial IVPUSH ONE (23:48)
[2023-03-22 23:50] LABS: VENT MODE AC; VENT RATE 12
[2023-03-23] MEDS ORDERED: PROPOFOL 1,000,000 MCG/100 ML VIAL ONE (00:02)
[2023-03-23 00:59] LABS: BASO % 0.4 % (0-2.0); EOS % 0.3 % (0-4.5); HEMATOCRIT 42.9 % (35.4-49); HEMOGLOBIN 13.7 GM/dL (11.7-16.9); LYMPH % 25.4 % (8-40); MCH 30.7 pg (25.7-33.7); MCHC 31.8 g/dl (32.0-35.9); MEAN CELL VOLUME 96.5 fl (80-96); MONO % 9.3 % (3.8-10.2); NEUT % 64.6 % (42.8-82.8); PLATELET COUNT 145 10^3/uL (134-434); RBC 4.45 M/mm3 (4.00-5.60); RDW 13.4 % (11.9-15.9)
[2023-03-23 01:28] LABS: POTASSIUM 4.5 mmol/L (3.5-5.1)
[2023-03-23] MEDS ORDERED: CEFTRIAXONE 1 GM in DEXTROSE 5%-WATER - 50 ML IVPB SCH (01:29)
[2023-03-23 01:31] LABS: ALBUMIN 3.4 g/dl (3.4-5.0); CALCIUM 7.8 mg/dL (8.5-10.1); MAGNESIUM 1.9 mg/dL (1.8-2.4)
[2023-03-23 01:32] LABS: BLOOD UREA NITROGEN 10.5 mg/dL (7-18)
[2023-03-23 01:34] LABS: PHOSPHOROUS 4.9 mg/dL (2.5-4.9)
[2023-03-23 01:35] LABS: CREATININE 0.6 mg/dL (0.55-1.3)
[2023-03-23 01:36] LABS: BILIRUBIN,TOTAL 0.3 mg/dL (0.2-1); TOT PROT 6.6 g/dl (6.4-8.2)
[2023-03-23] MEDS ORDERED: RAPID SEQUENCE INTUBATION KIT NR ONE (01:56)
[2023-03-23] MEDS ORDERED: LACTATED RINGERS SOLUTION 1000 ML INFUS.BAG IV ONE (02:00)
[2023-03-23] MEDS: MUPIROCIN 2% TOPICAL OINTMENT FOR DECOLONIZATION NS SCH ×3 (02:20→21:01)
[2023-03-23] MEDS: HEPARIN NA (PORCINE) 5,000 UNITS/ML 1ML VIAL SQ SCH ×4 (02:21→21:01)
[2023-03-23] MEDS: AMINO ACIDS 4.25%/D5W 1,000 ML IV SCH ×2 (02:41→16:51)
[2023-03-23] MEDS ORDERED: PHENYLEPHRINE HCL 10 MG/1 ML SINGLE DOSE VIAL ONE ×2 (03:48→03:51)
[2023-03-23 06:30] LABS: ARTERIAL BLD GAS O2 SATURATION 99.2 % (95-98); ARTERIAL BLOOD GAS BASE EXCESS 6.7 mmol/L (-2-2); ARTERIAL BLOOD GAS PO2 160.2 mmHg (80-100); ARTERIAL BLOOD GAS pH 7.479 (7.350-7.450)
[2023-03-23 06:38] LABS: ALLENS TEST POSITIVE
[2023-03-23 06:39] LABS: VENT MODE A/C; VENT RATE 18
[2023-03-23] MEDS ORDERED: PHENYLEPHRINE NS PREMIX 50,000 MCG/500 ML BAG CVP SCH (06:45)
[2023-03-23 07:27] LABS: BASO % 0.3 % (0-2.0); HEMATOCRIT 41.2 % (35.4-49); HEMOGLOBIN 13.1 GM/dL (11.7-16.9); LYMPH % 5.2 % (8-40); MCH 30.7 pg (25.7-33.7); MCHC 31.9 g/dl (32.0-35.9); MEAN CELL VOLUME 96.4 fl (80-96); NEUT % 87.5 % (42.8-82.8); PLATELET COUNT 148 10^3/uL (134-434); RBC 4.28 M/mm3 (4.00-5.60); RDW 13.4 % (11.9-15.9); WHITE BLOOD COUNT 7.5 K/mm3 (4.0-10.0)
[2023-03-23 07:38] LABS: POTASSIUM 3.9 mmol/L (3.5-5.1)
[2023-03-23 07:44] LABS: CALCIUM 8.4 mg/dL (8.5-10.1)
[2023-03-23 07:45] LABS: ALBUMIN 3.2 g/dl (3.4-5.0); BLOOD UREA NITROGEN 14.7 mg/dL (7-18); MAGNESIUM 1.6 mg/dL (1.8-2.4)
[2023-03-23 07:48] LABS: CREATININE 0.7 mg/dL (0.55-1.3); PHOSPHOROUS 2.4 mg/dL (2.5-4.9)
[2023-03-23 07:49] LABS: BILIRUBIN,TOTAL 0.6 mg/dL (0.2-1); TOT PROT 6.2 g/dl (6.4-8.2)
[2023-03-23 08:04] LABS: INR 1.05 (0.83-1.09); PROTHROMBIN TIME (PATIENT) 12.2 SEC (9.7-13.0)
[2023-03-23 08:05] LABS: EPI CELLS 12 /uL (0-25.1); HYALINE CASTS 1 /uL (0-3.1); PH,URINE 7.5 (5.0-8.0); URINE APPEARANCE CLEAR; URINE BACTERIA 14 /uL (0-1359); URINE BILIRUBIN NEGATIVE (NEGATIVE); URINE COLOR YELLOW; URINE GLUCOSE (UA) NEGATIVE (NEGATIVE); URINE KETONE NEGATIVE (NEGATIVE); URINE LEUK ESTERASE NEGATIVE (NEGATIVE); URINE NITRITE NEGATIVE (NEGATIVE); URINE PROTEIN TRACE (NEGATIVE); URINE RBC 120 /uL (0-23.9); URINE UROBILINOGEN 0.2 mg/dL (0.2-1.0); URINE WBC 8 /uL (0-25.8)
[2023-03-23] MEDS ORDERED: NAPH,MB-DB/K PH,MBDB POWDER PACKET PO ONE (08:30)
[2023-03-23] MEDS ORDERED: MAGNESIUM 1GM/D5W 100ML - 100 ML IVPB IVPB ONE (08:30)
[2023-03-23] MEDS: AMPICILLIN NA/SULBACTAM NA 1.5 GM in SODIUM CHLORIDE 100 ML IVPB SCH ×3 (08:55→21:02)
[2023-03-23] MEDS: PANTOPRAZOLE SODIUM 40 MG VIAL IVPUSH SCH (09:29)
[2023-03-23 12:44] LABS: ARTERIAL BLD GAS O2 SATURATION 98.3 % (95-98); ARTERIAL BLOOD GAS BASE EXCESS -0.5 mmol/L (-2-2); ARTERIAL BLOOD GAS PO2 150.9 mmHg (80-100)
[2023-03-23 12:46] LABS: ALLENS TEST POSITIVE; VENT MODE ST
[2023-03-23 12:47] LABS: VENT RATE 10
[2023-03-23 12:48] LABS: ARTERIAL BLOOD GAS pH 7.185 (7.350-7.450)
[2023-03-23] MEDS: SODIUM CHLORIDE 1,000 ML IV SCH (19:00)
[2023-03-23 20:14] LABS: METHADONE, UR NEGATIVE (NEGATIVE); URINE AMPHETAMINES NEGATIVE (NEGATIVE)
[2023-03-23 20:15] LABS: OPIATES, URI NEGATIVE (NEGATIVE); PHENCYCLIDINE,URINE NEGATIVE (NEGATIVE); URINE BARBITURATES NEGATIVE (NEGATIVE)
[2023-03-23 20:19] LABS: COCAINE, UR NEGATIVE (NEGATIVE); URINE BENZODIAZEPINES POSITIVE (NEGATIVE)
[2023-03-23] MEDS: CHLORHEXIDINE GLUCONATE 4% CLEANSER FOR DECOLONIZATION TP SCH (21:02)
[2023-03-24] MEDS: AMPICILLIN NA/SULBACTAM NA 1.5 GM in SODIUM CHLORIDE 100 ML IVPB SCH ×4 (02:18→21:16)
[2023-03-24] MEDS: AMINO ACIDS 4.25%/D5W 1,000 ML IV SCH ×2 (02:19→13:30)
[2023-03-24] MEDS: HEPARIN NA (PORCINE) 5,000 UNITS/ML 1ML VIAL SQ SCH ×3 (06:17→21:18)
[2023-03-24] MEDS: SODIUM CHLORIDE 1,000 ML IV SCH (06:32)
[2023-03-24 07:27] LABS: BASO % 0.3 % (0-2.0); EOS % 0.1 % (0-4.5); HEMATOCRIT 34.9 % (35.4-49); HEMOGLOBIN 11.5 GM/dL (11.7-16.9); LYMPH % 10.2 % (8-40); MCH 31.7 pg (25.7-33.7); MCHC 32.9 g/dl (32.0-35.9); MEAN CELL VOLUME 96.4 fl (80-96); MEAN PLT VOLUME 8.7 fl (7.5-11.1); MONO % 5.5 % (3.8-10.2); NEUT % 83.9 % (42.8-82.8); PLATELET COUNT 116 10^3/uL (134-434); RBC 3.61 M/mm3 (4.00-5.60); RDW 13.4 % (11.9-15.9); WHITE BLOOD COUNT 9.1 K/mm3 (4.0-10.0)
[2023-03-24 07:41] LABS: POTASSIUM 3.6 mmol/L (3.5-5.1)
[2023-03-24 07:43] LABS: CALCIUM 7.9 mg/dL (8.5-10.1)
[2023-03-24 07:44] LABS: ALBUMIN 2.8 g/dl (3.4-5.0); BLOOD UREA NITROGEN 16.2 mg/dL (7-18); MAGNESIUM 1.8 mg/dL (1.8-2.4)
[2023-03-24 07:47] LABS: CREATININE 0.5 mg/dL (0.55-1.3); PHOSPHOROUS 1.9 mg/dL (2.5-4.9)
[2023-03-24 07:48] LABS: TOT PROT 5.7 g/dl (6.4-8.2)
[2023-03-24 07:49] LABS: BILIRUBIN,TOTAL 0.6 mg/dL (0.2-1)
[2023-03-24] MEDS ORDERED: NAPH,MB-DB/K PH,MBDB POWDER PACKET PO ONE (08:15)
[2023-03-24 09:09] LABS: ARTERIAL BLOOD GAS BASE EXCESS 5.1 mmol/L (-2-2); ARTERIAL BLOOD GAS pH 7.287 (7.350-7.450)
[2023-03-24 09:10] LABS: ALLENS TEST POSITIVE
[2023-03-24] MEDS: PANTOPRAZOLE SODIUM 40 MG VIAL IVPUSH SCH (10:08)
[2023-03-24] MEDS: MUPIROCIN 2% TOPICAL OINTMENT FOR DECOLONIZATION NS SCH ×2 (10:08→21:18)
[2023-03-24 11:12] VITALS: BMI 14.7
[2023-03-24] MEDS: CHLORHEXIDINE GLUCONATE 4% CLEANSER FOR DECOLONIZATION TP SCH (21:18)
[2023-03-25] MEDS: AMINO ACIDS 4.25%/D5W 1,000 ML IV SCH ×2 (00:48→15:49)
[2023-03-25] MEDS: AMPICILLIN NA/SULBACTAM NA 1.5 GM in SODIUM CHLORIDE 100 ML IVPB SCH ×4 (03:41→22:00)
[2023-03-25] MEDS: SODIUM CHLORIDE 1,000 ML IV SCH (03:42)
[2023-03-25] MEDS: HEPARIN NA (PORCINE) 5,000 UNITS/ML 1ML VIAL SQ SCH ×3 (05:54→22:28)
[2023-03-25] MEDS: PANTOPRAZOLE SODIUM 40 MG VIAL IVPUSH SCH (09:17)
[2023-03-25] MEDS: MUPIROCIN 2% TOPICAL OINTMENT FOR DECOLONIZATION NS SCH ×2 (09:17→22:28)
[2023-03-25 10:00] LABS: ARTERIAL BLD GAS O2 SATURATION 98.5 % (95-98); ARTERIAL BLOOD GAS BASE EXCESS 4.5 mmol/L (-2-2); ARTERIAL BLOOD GAS PO2 128.9 mmHg (80-100); ARTERIAL BLOOD GAS pH 7.386 (7.350-7.450)
[2023-03-25 10:02] LABS: ALLENS TEST POSITIVE; VENT MODE ST
[2023-03-25 10:03] LABS: VENT RATE 10
[2023-03-25 10:52] LABS: BASO % 0.2 % (0-2.0); EOS % 0.2 % (0-4.5); HEMATOCRIT 32.7 % (35.4-49); LYMPH % 10.6 % (8-40); MCH 31.4 pg (25.7-33.7); MCHC 33.6 g/dl (32.0-35.9); MEAN CELL VOLUME 93.5 fl (80-96); MEAN PLT VOLUME 8.5 fl (7.5-11.1); MONO % 7.6 % (3.8-10.2); NEUT % 81.4 % (42.8-82.8); PLATELET COUNT 107 10^3/uL (134-434); RDW 13.7 % (11.9-15.9); WHITE BLOOD COUNT 6.8 K/mm3 (4.0-10.0)
[2023-03-25 11:08] LABS: POTASSIUM 3.2 mmol/L (3.5-5.1)
[2023-03-25 11:12] LABS: ALBUMIN 2.5 g/dl (3.4-5.0); BLOOD UREA NITROGEN 10.4 mg/dL (7-18)
[2023-03-25 11:14] LABS: MAGNESIUM 1.6 mg/dL (1.8-2.4)
[2023-03-25 11:15] LABS: CREATININE 0.3 mg/dL (0.55-1.3); PHOSPHOROUS 1.7 mg/dL (2.5-4.9)
[2023-03-25 11:17] LABS: TOT PROT 5.3 g/dl (6.4-8.2)
[2023-03-25 11:51] LABS: ERYTHROCYTE SEDIMENTATION RATE 53 mm/hr (0-20)
[2023-03-25] MEDS ORDERED: POTASSIUM PHOSPHATE 30 MM in DEXTROSE 5%-WATER - 500 ML IVPB ONE (15:09)
[2023-03-25] MEDS ORDERED: MAGNESIUM SULFATE IN WATER 2 GM/50 ML IVPB IVPB ONE (15:10)
[2023-03-25] MEDS: MAGNESIUM OXIDE 400 MG TABLET (FP) PO SCH (23:00)
[2023-03-25] MEDS: CHLORHEXIDINE GLUCONATE 4% CLEANSER FOR DECOLONIZATION TP SCH (23:00)
[2023-03-26] MEDS: AMPICILLIN NA/SULBACTAM NA 1.5 GM in SODIUM CHLORIDE 100 ML IVPB SCH ×4 (04:00→22:30)
[2023-03-26] MEDS: AMINO ACIDS 4.25%/D5W 1,000 ML IV SCH ×2 (06:20→14:09)
[2023-03-26] MEDS: HEPARIN NA (PORCINE) 5,000 UNITS/ML 1ML VIAL SQ SCH ×3 (06:21→22:32)
[2023-03-26 06:24] LABS: ARTERIAL BLD GAS O2 SATURATION 96.8 % (95-98); ARTERIAL BLOOD GAS BASE EXCESS 8.3 mmol/L (-2-2); ARTERIAL BLOOD GAS PO2 96.7 mmHg (80-100); ARTERIAL BLOOD GAS pH 7.345 (7.350-7.450)
[2023-03-26 06:26] LABS: ALLENS TEST POSITIVE
[2023-03-26 06:27] LABS: VENT MODE S/T; VENT RATE 10
[2023-03-26] MEDS: MAGNESIUM OXIDE 400 MG TABLET (FP) PO SCH ×2 (09:29→22:31)
[2023-03-26] MEDS: MUPIROCIN 2% TOPICAL OINTMENT FOR DECOLONIZATION NS SCH ×2 (09:30→22:31)
[2023-03-26] MEDS: POTASSIUM CHLORIDE TABS 20 MEQ TABLET.ER (FP) PO SCH (09:30)
[2023-03-26] MEDS: PANTOPRAZOLE SODIUM 40 MG VIAL IVPUSH SCH (09:30)
[2023-03-26] MEDS: guaiFENesin 600 MG TABLET.ER (FP) PO SCH ×2 (14:05→22:32)
[2023-03-26 17:56] LABS: ARTERIAL BLD GAS O2 SATURATION 98.3 % (95-98); ARTERIAL BLOOD GAS BASE EXCESS 9.3 mmol/L (-2-2); ARTERIAL BLOOD GAS pH 7.395 (7.350-7.450)
[2023-03-26 17:57] LABS: ALLENS TEST POSITIVE
[2023-03-26 18:36] LABS: POTASSIUM 3.1 mmol/L (3.5-5.1)
[2023-03-26 18:39] LABS: CALCIUM 8.3 mg/dL (8.5-10.1)
[2023-03-26 18:40] LABS: ALBUMIN 2.6 g/dl (3.4-5.0); BLOOD UREA NITROGEN 8.5 mg/dL (7-18); MAGNESIUM 1.8 mg/dL (1.8-2.4)
[2023-03-26 18:43] LABS: CREATININE 0.3 mg/dL (0.55-1.3); PHOSPHOROUS 2.3 mg/dL (2.5-4.9)
[2023-03-26 18:44] LABS: BILIRUBIN,TOTAL 0.6 mg/dL (0.2-1); TOT PROT 5.7 g/dl (6.4-8.2)
[2023-03-26] MEDS ORDERED: POTASSIUM PHOSPHATE 30 MM in DEXTROSE 5%-WATER - 500 ML IVPB ONE (19:30)
[2023-03-26] MEDS: CHLORHEXIDINE GLUCONATE 4% CLEANSER FOR DECOLONIZATION TP SCH (22:31)
[2023-03-27] MEDS: HEPARIN NA (PORCINE) 5,000 UNITS/ML 1ML VIAL SQ SCH ×3 (06:13→21:54)
[2023-03-27] MEDS: AMPICILLIN NA/SULBACTAM NA 1.5 GM in SODIUM CHLORIDE 100 ML IVPB SCH ×4 (06:19→21:53)
[2023-03-27] MEDS: AMINO ACIDS 4.25%/D5W 1,000 ML IV SCH ×2 (06:21→14:36)
[2023-03-27 08:05] LABS: HEMATOCRIT 33.3 % (35.4-49); HEMOGLOBIN 10.8 GM/dL (11.7-16.9); MCH 30.7 pg (25.7-33.7); MCHC 32.3 g/dl (32.0-35.9); MEAN CELL VOLUME 95.1 fl (80-96); MEAN PLT VOLUME 9.2 fl (7.5-11.1); PLATELET COUNT 150 10^3/uL (134-434); RDW 13.3 % (11.9-15.9); WHITE BLOOD COUNT 4.8 K/mm3 (4.0-10.0)
[2023-03-27 08:22] LABS: POTASSIUM 3.5 mmol/L (3.5-5.1)
[2023-03-27 08:27] LABS: BLOOD UREA NITROGEN 8.6 mg/dL (7-18); CALCIUM 8.1 mg/dL (8.5-10.1)
[2023-03-27 08:28] LABS: ALBUMIN 2.5 g/dl (3.4-5.0); MAGNESIUM 1.8 mg/dL (1.8-2.4)
[2023-03-27 08:30] LABS: CREATININE 0.3 mg/dL (0.55-1.3); PHOSPHOROUS 4.1 mg/dL (2.5-4.9)
[2023-03-27 08:31] LABS: BILIRUBIN,TOTAL 0.7 mg/dL (0.2-1)
[2023-03-27 08:32] LABS: TOT PROT 5.5 g/dl (6.4-8.2)
[2023-03-27] MEDS: PANTOPRAZOLE SODIUM 40 MG VIAL IVPUSH SCH (09:50)
[2023-03-27] MEDS: MAGNESIUM OXIDE 400 MG TABLET (FP) PO SCH ×3 (09:51→21:55)
[2023-03-27] MEDS: POTASSIUM CHLORIDE TABS 20 MEQ TABLET.ER (FP) PO SCH ×2 (09:51→14:53)
[2023-03-27] MEDS: guaiFENesin 600 MG TABLET.ER (FP) PO SCH ×3 (09:51→21:54)
[2023-03-27] MEDS: MUPIROCIN 2% TOPICAL OINTMENT FOR DECOLONIZATION NS SCH (09:51)
[2023-03-27 11:58] LABS: CSF APPEARANCE CLEAR (CLEAR); CSF COLOR COLORLESS (COLORLESS); CSF WBC 0 mm3 (0-5)
[2023-03-27 12:39] LABS: BF GLUCOSE (CSF ONLY) 71 mg/dL (40-70)
[2023-03-27] MEDS: ACETAMINOPHEN 325 MG TABLET (FP) PO PRN ×2 (16:06→21:54)
[2023-03-28] MEDS: CHLORHEXIDINE GLUCONATE 4% CLEANSER FOR DECOLONIZATION TP SCH (01:03)
[2023-03-28] MEDS: MUPIROCIN 2% TOPICAL OINTMENT FOR DECOLONIZATION NS SCH (01:03)
[2023-03-28] MEDS ORDERED: ACETAMINOPHEN/CAFFEINE/BUTALBITAL 1 TAB PO ONE (05:05)
[2023-03-28] MEDS: HEPARIN NA (PORCINE) 5,000 UNITS/ML 1ML VIAL SQ SCH ×3 (05:22→21:29)
[2023-03-28] MEDS: AMPICILLIN NA/SULBACTAM NA 1.5 GM in SODIUM CHLORIDE 100 ML IVPB SCH ×4 (05:22→21:29)
[2023-03-28 08:17] LABS: POTASSIUM 3.7 mmol/L (3.5-5.1)
[2023-03-28 08:30] LABS: BLOOD UREA NITROGEN 6.1 mg/dL (7-18)
[2023-03-28 08:33] LABS: CALCIUM 8.5 mg/dL (8.5-10.1)
[2023-03-28 08:34] LABS: HEMATOCRIT 32.3 % (35.4-49); HEMOGLOBIN 10.6 GM/dL (11.7-16.9); MCH 31.3 pg (25.7-33.7); MCHC 32.9 g/dl (32.0-35.9); MEAN CELL VOLUME 95.3 fl (80-96); MEAN PLT VOLUME 9.4 fl (7.5-11.1); PLATELET COUNT 163 10^3/uL (134-434); RBC 3.39 M/mm3 (4.00-5.60); RDW 13.4 % (11.9-15.9); WHITE BLOOD COUNT 4.8 K/mm3 (4.0-10.0)
[2023-03-28 08:37] LABS: CREATININE 0.3 mg/dL (0.55-1.3)
[2023-03-28 08:38] LABS: PHOSPHOROUS 3.1 mg/dL (2.5-4.9)
[2023-03-28] MEDS: PANTOPRAZOLE SODIUM 40 MG VIAL IVPUSH SCH (09:42)
[2023-03-28] MEDS: POTASSIUM CHLORIDE TABS 20 MEQ TABLET.ER (FP) PO SCH (09:42)
[2023-03-28] MEDS: guaiFENesin 600 MG TABLET.ER (FP) PO SCH ×2 (09:42→21:29)
[2023-03-28] MEDS: MAGNESIUM OXIDE 400 MG TABLET (FP) PO SCH ×2 (11:01→21:29)
[2023-03-28] MEDS: ACETAMINOPHEN 325 MG TABLET (FP) PO PRN ×2 (11:11→21:29)
[2023-03-28] MEDS ORDERED: KETOROLAC TROMETHAMINE 30 MG/1 ML VIAL IVPUSH ONE (16:22)
[2023-03-28] MEDS ORDERED: CHLORHEXIDINE GLUCONATE 4% CLEANSER FOR DECOLONIZATION TP SCH (22:00)
[2023-03-29] MEDS ORDERED: ACETAMINOPHEN/CAFFEINE/BUTALBITAL 1 TAB PO ONE ×3 (00:06→22:18)
[2023-03-29] MEDS ORDERED: KETOROLAC TROMETHAMINE 15 MG/ML VIAL IVPUSH ONE (00:08)
[2023-03-29] MEDS: AMPICILLIN NA/SULBACTAM NA 1.5 GM in SODIUM CHLORIDE 100 ML IVPB SCH ×3 (03:20→14:22)
[2023-03-29] MEDS: HEPARIN NA (PORCINE) 5,000 UNITS/ML 1ML VIAL SQ SCH ×3 (06:17→21:58)
[2023-03-29 08:20] LABS: ALBUMIN 2.6 g/dl (3.4-5.0)
[2023-03-29 08:22] LABS: BLOOD UREA NITROGEN 7.3 mg/dL (7-18); CALCIUM 8.9 mg/dL (8.5-10.1); MAGNESIUM 2.3 mg/dL (1.8-2.4)
[2023-03-29 08:23] LABS: CREATININE 0.3 mg/dL (0.55-1.3); HEMATOCRIT 32.7 % (35.4-49); HEMOGLOBIN 10.5 GM/dL (11.7-16.9); MCH 30.9 pg (25.7-33.7); MCHC 32.2 g/dl (32.0-35.9); MEAN CELL VOLUME 95.9 fl (80-96); MEAN PLT VOLUME 9.5 fl (7.5-11.1); PHOSPHOROUS 3.5 mg/dL (2.5-4.9); PLATELET COUNT 187 10^3/uL (134-434); RBC 3.41 M/mm3 (4.00-5.60); RDW 13.4 % (11.9-15.9); WHITE BLOOD COUNT 3.4 K/mm3 (4.0-10.0)
[2023-03-29 08:24] LABS: BILIRUBIN,TOTAL 0.5 mg/dL (0.2-1)
[2023-03-29 08:25] LABS: TOT PROT 5.8 g/dl (6.4-8.2)
[2023-03-29] MEDS: PANTOPRAZOLE SODIUM 40 MG VIAL IVPUSH SCH (11:18)
[2023-03-29] MEDS: MAGNESIUM OXIDE 400 MG TABLET (FP) PO SCH ×2 (11:21→21:58)
[2023-03-29] MEDS: POTASSIUM CHLORIDE TABS 20 MEQ TABLET.ER (FP) PO SCH (11:21)
[2023-03-29] MEDS: guaiFENesin 600 MG TABLET.ER (FP) PO SCH ×2 (11:21→21:58)
[2023-03-29] MEDS: ACETAMINOPHEN 325 MG TABLET (FP) PO PRN ×2 (11:22→21:58)
[2023-03-29] MEDS: MELATONIN 5 MG TABLETS PO PRN (22:30)
[2023-03-30] MEDS ORDERED: KETOROLAC TROMETHAMINE 30 MG/1 ML VIAL IVPUSH ONE (03:11)
[2023-03-30] MEDS: HEPARIN NA (PORCINE) 5,000 UNITS/ML 1ML VIAL SQ SCH ×3 (06:33→22:07)
[2023-03-30 08:02] LABS: HEMATOCRIT 34.6 % (35.4-49); HEMOGLOBIN 11.1 GM/dL (11.7-16.9); MCH 30.8 pg (25.7-33.7); MEAN CELL VOLUME 96.1 fl (80-96); MEAN PLT VOLUME 8.6 fl (7.5-11.1); PLATELET COUNT 251 10^3/uL (134-434); RDW 13.3 % (11.9-15.9); WHITE BLOOD COUNT 2.9 K/mm3 (4.0-10.0)
[2023-03-30 08:10] LABS: POTASSIUM 4.5 mmol/L (3.5-5.1)
[2023-03-30 08:16] LABS: CALCIUM 8.9 mg/dL (8.5-10.1)
[2023-03-30 08:17] LABS: ALBUMIN 2.9 g/dl (3.4-5.0); BLOOD UREA NITROGEN 8.8 mg/dL (7-18); MAGNESIUM 2.4 mg/dL (1.8-2.4)
[2023-03-30 08:20] LABS: CREATININE 0.4 mg/dL (0.55-1.3); PHOSPHOROUS 3.6 mg/dL (2.5-4.9)
[2023-03-30 08:21] LABS: TOT PROT 6.5 g/dl (6.4-8.2)
[2023-03-30 08:28] LABS: BILIRUBIN,TOTAL 0.5 mg/dL (0.2-1)
[2023-03-30] MEDS: ACETAMINOPHEN 325 MG TABLET (FP) PO PRN (09:37)
[2023-03-30] MEDS: POTASSIUM CHLORIDE TABS 20 MEQ TABLET.ER (FP) PO SCH (09:37)
[2023-03-30] MEDS: MAGNESIUM OXIDE 400 MG TABLET (FP) PO SCH ×2 (09:37→22:07)
[2023-03-30] MEDS: guaiFENesin 600 MG TABLET.ER (FP) PO SCH ×2 (09:37→22:07)
[2023-03-30] MEDS: PANTOPRAZOLE SODIUM 40 MG VIAL IVPUSH SCH (09:38)
[2023-03-30] MEDS ORDERED: CYCLOBENZAPRINE HCL 5 MG TABLET PO PRN ×2 (11:08→11:25)
[2023-03-30] MEDS ORDERED: MAGNESIUM SULF 50% (8.12 MEQ/2 ML-1 GM VIAL) IVPB ONE ×2 (11:27→11:29)
[2023-03-30] MEDS: CYCLOBENZAPRINE HCL 5 MG TABLET PO SCH ×2 (12:02→17:19)
[2023-03-30 14:46] LABS: ALLENS TEST POSITIVE; ARTERIAL BLD GAS O2 SATURATION 98.1 % (95-98); ARTERIAL BLOOD GAS BASE EXCESS 8.5 mmol/L (-2-2); ARTERIAL BLOOD GAS PO2 120.6 mmHg (80-100); ARTERIAL BLOOD GAS pH 7.368 (7.350-7.450)
[2023-03-30] MEDS: MELATONIN 5 MG TABLETS PO PRN (22:07)
[2023-03-31] MEDS: ACETAMINOPHEN 325 MG TABLET (FP) PO PRN (01:44)
[2023-03-31] MEDS: CYCLOBENZAPRINE HCL 5 MG TABLET PO SCH ×5 (06:15→23:28)
[2023-03-31] MEDS: HEPARIN NA (PORCINE) 5,000 UNITS/ML 1ML VIAL SQ SCH ×3 (06:15→22:35)
[2023-03-31 07:52] LABS: HEMATOCRIT 35.2 % (35.4-49); HEMOGLOBIN 11.9 GM/dL (11.7-16.9); MCH 31.6 pg (25.7-33.7); MCHC 33.8 g/dl (32.0-35.9); MEAN CELL VOLUME 93.6 fl (80-96); PLATELET COUNT 274 10^3/uL (134-434); RBC 3.76 M/mm3 (4.00-5.60); RDW 13.6 % (11.9-15.9); WHITE BLOOD COUNT 2.7 K/mm3 (4.0-10.0)
[2023-03-31 08:05] LABS: POTASSIUM 4.5 mmol/L (3.5-5.1)
[2023-03-31 08:08] LABS: CALCIUM 8.9 mg/dL (8.5-10.1)
[2023-03-31 08:09] LABS: BLOOD UREA NITROGEN 7.8 mg/dL (7-18); MAGNESIUM 2.4 mg/dL (1.8-2.4)
[2023-03-31 08:12] LABS: CREATININE 0.3 mg/dL (0.55-1.3); PHOSPHOROUS 3.8 mg/dL (2.5-4.9)
[2023-03-31 08:13] LABS: BILIRUBIN,TOTAL 0.4 mg/dL (0.2-1)
[2023-03-31 08:14] LABS: TOT PROT 6.8 g/dl (6.4-8.2)
[2023-03-31] MEDS: PANTOPRAZOLE SODIUM 40 MG VIAL IVPUSH SCH (10:22)
[2023-03-31] MEDS: POTASSIUM CHLORIDE TABS 20 MEQ TABLET.ER (FP) PO SCH (10:22)
[2023-03-31] MEDS: guaiFENesin 600 MG TABLET.ER (FP) PO SCH ×2 (10:24→22:36)
[2023-03-31] MEDS: MAGNESIUM OXIDE 400 MG TABLET (FP) PO SCH ×2 (10:24→22:35)
[2023-03-31] MEDS ORDERED: IBUPROFEN 800 MG/8 ML IJ IVPB ONE (10:30)
[2023-03-31] MEDS: IBUPROFEN 800 MG/8 ML IJ IVPB SCH (22:33)
[2023-04-01] MEDS: IBUPROFEN 800 MG/8 ML IJ IVPB SCH ×4 (01:16→17:30)
[2023-04-01] MEDS: CYCLOBENZAPRINE HCL 5 MG TABLET PO SCH ×3 (06:39→17:30)
[2023-04-01] MEDS: HEPARIN NA (PORCINE) 5,000 UNITS/ML 1ML VIAL SQ SCH ×3 (06:42→22:31)
[2023-04-01 08:36] LABS: HEMATOCRIT 35.2 % (35.4-49); MCH 31.9 pg (25.7-33.7); MCHC 34.1 g/dl (32.0-35.9); MEAN CELL VOLUME 93.7 fl (80-96); MEAN PLT VOLUME 7.3 fl (7.5-11.1); PLATELET COUNT 266 10^3/uL (134-434); RBC 3.75 M/mm3 (4.00-5.60); RDW 13.3 % (11.9-15.9)
[2023-04-01 08:41] LABS: WHITE BLOOD COUNT 1.9 K/mm3 (4.0-10.0)
[2023-04-01 08:54] LABS: POTASSIUM 4.8 mmol/L (3.5-5.1)
[2023-04-01 09:04] LABS: ALBUMIN 3.1 g/dl (3.4-5.0); BLOOD UREA NITROGEN 5.3 mg/dL (7-18); CALCIUM 8.7 mg/dL (8.5-10.1); MAGNESIUM 2.3 mg/dL (1.8-2.4)
[2023-04-01 09:06] LABS: PHOSPHOROUS 3.5 mg/dL (2.5-4.9)
[2023-04-01 09:07] LABS: BILIRUBIN,TOTAL 0.5 mg/dL (0.2-1); CREATININE 0.4 mg/dL (0.55-1.3); TOT PROT 6.4 g/dl (6.4-8.2)
[2023-04-01] MEDS: MAGNESIUM OXIDE 400 MG TABLET (FP) PO SCH ×2 (10:26→22:31)
[2023-04-01] MEDS: POTASSIUM CHLORIDE TABS 20 MEQ TABLET.ER (FP) PO SCH (10:26)
[2023-04-01] MEDS: PANTOPRAZOLE SODIUM 40 MG VIAL IVPUSH SCH (10:26)
[2023-04-01] MEDS: guaiFENesin 600 MG TABLET.ER (FP) PO SCH ×2 (10:27→22:31)
[2023-04-02] MEDS: IBUPROFEN 800 MG/8 ML IJ IVPB SCH ×4 (00:04→17:32)
[2023-04-02] MEDS: CYCLOBENZAPRINE HCL 5 MG TABLET PO SCH ×4 (00:07→17:32)
[2023-04-02] MEDS: HEPARIN NA (PORCINE) 5,000 UNITS/ML 1ML VIAL SQ SCH (05:47)
[2023-04-02 09:18] LABS: CHLORIDE 92 mmol/L (98-107); POTASSIUM 4.2 mmol/L (3.5-5.1); SODIUM 137 mmol/L (136-145)
[2023-04-02 09:23] LABS: CALCIUM 8.6 mg/dL (8.5-10.1); GLUCOSE,RANDOM 125 mg/dL (74-106)
[2023-04-02 09:24] LABS: ALBUMIN 3.4 g/dl (3.4-5.0); BLOOD UREA NITROGEN 8.9 mg/dL (7-18); MAGNESIUM 2.3 mg/dL (1.8-2.4)
[2023-04-02 09:25] LABS: HEMATOCRIT 36.9 % (35.4-49); HEMOGLOBIN 11.8 GM/dL (11.7-16.9); MCH 30.9 pg (25.7-33.7); MEAN CELL VOLUME 96.5 fl (80-96); MEAN PLT VOLUME 7.8 fl (7.5-11.1); PLATELET COUNT 308 10^3/uL (134-434); RBC 3.82 M/mm3 (4.00-5.60); WHITE BLOOD COUNT 2.2 K/mm3 (4.0-10.0)
[2023-04-02 09:26] LABS: PHOSPHOROUS 3.5 mg/dL (2.5-4.9); SGPT/ALT 162 U/L (13-61)
[2023-04-02 09:27] LABS: CREATININE 0.4 mg/dL (0.55-1.3); SGOT/AST 50 U/L (15-37)
[2023-04-02 09:28] LABS: BILIRUBIN,TOTAL 0.5 mg/dL (0.2-1); TOT PROT 6.8 g/dl (6.4-8.2)
[2023-04-02 09:29] LABS: ALK PHOS 210 U/L (45-117)
[2023-04-02 09:34] LABS: ANION GAP 0 MMOL/L (8-16); CO2 > 45 mmol/L (21-32)
[2023-04-02] MEDS: PANTOPRAZOLE SODIUM 40 MG VIAL IVPUSH SCH (10:26)
[2023-04-02] MEDS: MAGNESIUM OXIDE 400 MG TABLET (FP) PO SCH ×2 (10:26→23:01)
[2023-04-02] MEDS: guaiFENesin 600 MG TABLET.ER (FP) PO SCH ×2 (10:26→22:16)
[2023-04-02] MEDS: POTASSIUM CHLORIDE TABS 20 MEQ TABLET.ER (FP) PO SCH (10:26)
[2023-04-02] MEDS: ENOXAPARIN NA (PORCINE) 30 MG/0.3 ML DISP.SYRIN SQ SCH (17:32)
[2023-04-03] MEDS: IBUPROFEN 800 MG/8 ML IJ IVPB SCH ×4 (06:26→17:30)
[2023-04-03] MEDS: CYCLOBENZAPRINE HCL 5 MG TABLET PO SCH ×4 (06:26→17:31)
[2023-04-03 08:25] LABS: BASO % 0.4 % (0-2.0); EOS % 0.7 % (0-4.5); HEMATOCRIT 35.4 % (35.4-49); HEMOGLOBIN 11.5 GM/dL (11.7-16.9); LYMPH % 25.4 % (8-40); MCHC 32.4 g/dl (32.0-35.9); MEAN CELL VOLUME 95.7 fl (80-96); MEAN PLT VOLUME 8.1 fl (7.5-11.1); MONO % 12.8 % (3.8-10.2); NEUT % 60.7 % (42.8-82.8); PLATELET COUNT 305 10^3/uL (134-434); RDW 12.9 % (11.9-15.9); WHITE BLOOD COUNT 2.9 K/mm3 (4.0-10.0)
[2023-04-03 08:36] LABS: POTASSIUM 4.8 mmol/L (3.5-5.1)
[2023-04-03 08:42] LABS: CALCIUM 8.7 mg/dL (8.5-10.1)
[2023-04-03 08:43] LABS: ALBUMIN 3.3 g/dl (3.4-5.0); BLOOD UREA NITROGEN 11.3 mg/dL (7-18); MAGNESIUM 2.3 mg/dL (1.8-2.4)
[2023-04-03 08:46] LABS: BILIRUBIN,TOTAL 0.9 mg/dL (0.2-1); CREATININE 0.3 mg/dL (0.55-1.3); PHOSPHOROUS 3.2 mg/dL (2.5-4.9); TOT PROT 6.7 g/dl (6.4-8.2)
[2023-04-03] MEDS: POTASSIUM CHLORIDE TABS 20 MEQ TABLET.ER (FP) PO SCH (10:23)
[2023-04-03] MEDS: guaiFENesin 600 MG TABLET.ER (FP) PO SCH ×2 (10:23→21:52)
[2023-04-03] MEDS: ENOXAPARIN NA (PORCINE) 30 MG/0.3 ML DISP.SYRIN SQ SCH (10:23)
[2023-04-03] MEDS: PANTOPRAZOLE SODIUM 40 MG VIAL IVPUSH SCH (10:23)
[2023-04-03] MEDS: MAGNESIUM OXIDE 400 MG TABLET (FP) PO SCH (10:23)
[2023-04-03 20:28] LABS: PH,URINE 7.5 (5.0-8.0); URINE APPEARANCE CLEAR; URINE BILIRUBIN NEGATIVE (NEGATIVE); URINE COLOR YELLOW; URINE GLUCOSE (UA) NEGATIVE (NEGATIVE); URINE KETONE NEGATIVE (NEGATIVE); URINE LEUK ESTERASE NEGATIVE (NEGATIVE); URINE NITRITE NEGATIVE (NEGATIVE); URINE PROTEIN NEGATIVE (NEGATIVE); URINE UROBILINOGEN 0.2 mg/dL (0.2-1.0)
[2023-04-03] MEDS: MELATONIN 5 MG TABLETS PO PRN (21:52)
[2023-04-04] MEDS: IBUPROFEN 800 MG/8 ML IJ IVPB SCH ×2 (00:37→06:13)
[2023-04-04] MEDS: MAGNESIUM OXIDE 400 MG TABLET (FP) PO SCH ×3 (03:15→22:10)
[2023-04-04] MEDS: CYCLOBENZAPRINE HCL 5 MG TABLET PO SCH ×5 (06:13→18:18)
[2023-04-04 08:15] LABS: HEMATOCRIT 34.8 % (35.4-49); HEMOGLOBIN 11.7 GM/dL (11.7-16.9); MCH 31.9 pg (25.7-33.7); MCHC 33.6 g/dl (32.0-35.9); MEAN CELL VOLUME 95.1 fl (80-96); MEAN PLT VOLUME 7.4 fl (7.5-11.1); PLATELET COUNT 301 10^3/uL (134-434); RBC 3.66 M/mm3 (4.00-5.60); RDW 13.4 % (11.9-15.9); WHITE BLOOD COUNT 2.7 K/mm3 (4.0-10.0)
[2023-04-04 08:24] LABS: CHLORIDE 89 mmol/L (98-107); POTASSIUM 4.6 mmol/L (3.5-5.1); SODIUM 137 mmol/L (136-145)
[2023-04-04 08:32] LABS: ALBUMIN 3.5 g/dl (3.4-5.0); CALCIUM 8.9 mg/dL (8.5-10.1); GLUCOSE,RANDOM 90 mg/dL (74-106)
[2023-04-04 08:33] LABS: BLOOD UREA NITROGEN 12.2 mg/dL (7-18); MAGNESIUM 2.2 mg/dL (1.8-2.4)
[2023-04-04 08:35] LABS: CREATININE 0.3 mg/dL (0.55-1.3); PHOSPHOROUS 2.9 mg/dL (2.5-4.9); SGPT/ALT 199 U/L (13-61)
[2023-04-04 08:36] LABS: SGOT/AST 68 U/L (15-37)
[2023-04-04 08:37] LABS: BILIRUBIN,TOTAL 0.6 mg/dL (0.2-1); TOT PROT 6.9 g/dl (6.4-8.2)
[2023-04-04 08:38] LABS: ALK PHOS 200 U/L (45-117)
[2023-04-04 08:41] LABS: ANION GAP 3 MMOL/L (8-16); CO2 > 45 mmol/L (21-32)
[2023-04-04] MEDS: POTASSIUM CHLORIDE TABS 20 MEQ TABLET.ER (FP) PO SCH (10:09)
[2023-04-04] MEDS: guaiFENesin 600 MG TABLET.ER (FP) PO SCH ×2 (10:09→22:10)
[2023-04-04] MEDS ORDERED: ALBUTEROL SO4 2.5/IPRATROPIUM 0.5 INH SOL 3 ML VIAL.NEB. NEB ONE (10:10)
[2023-04-04] MEDS: PANTOPRAZOLE 40 MG TABLET PO SCH (10:11)
[2023-04-04] MEDS: BUDESONIDE/FORMETEROL FUMARATE 80/4.5 mcg INHALER IH SCH ×2 (11:10→22:10)
[2023-04-04] MEDS ORDERED: ALBUTEROL SO4 2.5/IPRATROPIUM 0.5 INH SOL 3 ML VIAL.NEB. NEB SCH (12:00)
[2023-04-04] MEDS: predniSONE 20 MG TABLET (UD) PO SCH (12:09)
[2023-04-04] MEDS: ENOXAPARIN NA (PORCINE) 30 MG/0.3 ML DISP.SYRIN SQ SCH (12:12)
[2023-04-04] MEDS: PANTOPRAZOLE SODIUM 40 MG VIAL IVPUSH SCH (12:12)
[2023-04-04] MEDS ORDERED: ALBUTEROL SO4 2.5/IPRATROPIUM 0.5 INH SOL 3 ML VIAL.NEB. NEB PRN ×2 (15:56→15:57)
[2023-04-05] MEDS: CYCLOBENZAPRINE HCL 5 MG TABLET PO SCH ×3 (00:47→12:34)
[2023-04-05 08:11] LABS: POTASSIUM 4.2 mmol/L (3.5-5.1)
[2023-04-05 08:20] LABS: ALBUMIN 3.5 g/dl (3.4-5.0); BLOOD UREA NITROGEN 13.5 mg/dL (7-18); CALCIUM 8.8 mg/dL (8.5-10.1); MAGNESIUM 2.2 mg/dL (1.8-2.4)
[2023-04-05 08:23] LABS: CREATININE 0.4 mg/dL (0.55-1.3); PHOSPHOROUS 3.9 mg/dL (2.5-4.9)
[2023-04-05 08:24] LABS: HEMATOCRIT 34.1 % (35.4-49); HEMOGLOBIN 11.4 GM/dL (11.7-16.9); MCH 32.3 pg (25.7-33.7); MCHC 33.3 g/dl (32.0-35.9); MEAN CELL VOLUME 96.8 fl (80-96); MEAN PLT VOLUME 7.9 fl (7.5-11.1); PLATELET COUNT 327 10^3/uL (134-434); RBC 3.52 M/mm3 (4.00-5.60); RDW 13.2 % (11.9-15.9); WHITE BLOOD COUNT 3.5 K/mm3 (4.0-10.0)
[2023-04-05 08:25] LABS: BILIRUBIN,TOTAL 0.5 mg/dL (0.2-1)
[2023-04-05 09:16] LABS: ARTERIAL BLD GAS O2 SATURATION 99.4 % (95-98); ARTERIAL BLOOD GAS BASE EXCESS 7.9 mmol/L (-2-2); ARTERIAL BLOOD GAS PO2 272.2 mmHg (80-100); ARTERIAL BLOOD GAS pH 7.208 (7.350-7.450)
[2023-04-05 09:33] LABS: ALLENS TEST POSITIVE
[2023-04-05] MEDS: ENOXAPARIN NA (PORCINE) 30 MG/0.3 ML DISP.SYRIN SQ SCH (10:59)
[2023-04-05] MEDS: BUDESONIDE/FORMETEROL FUMARATE 80/4.5 mcg INHALER IH SCH ×2 (11:01→22:30)
[2023-04-05] MEDS: MAGNESIUM OXIDE 400 MG TABLET (FP) PO SCH (11:35)
[2023-04-05] MEDS: POTASSIUM CHLORIDE TABS 20 MEQ TABLET.ER (FP) PO SCH (11:35)
[2023-04-05] MEDS: PANTOPRAZOLE 40 MG TABLET PO SCH (12:22)
[2023-04-05] MEDS: guaiFENesin 600 MG TABLET.ER (FP) PO SCH ×2 (12:22→22:45)
[2023-04-05] MEDS: predniSONE 20 MG TABLET (UD) PO SCH (12:22)
[2023-04-05 15:56] LABS: ARTERIAL BLD GAS O2 SATURATION 98.9 % (95-98); ARTERIAL BLOOD GAS BASE EXCESS 14.3 mmol/L (-2-2); ARTERIAL BLOOD GAS pH 7.417 (7.350-7.450)
[2023-04-05 15:57] LABS: ALLENS TEST POSITIVE
[2023-04-05] MEDS: POTASSIUM CHLORIDE 10 MEQ in DEXTROSE 5%-NORMAL SALINE 1,000 ML IVPB SCH (17:40)
[2023-04-05] MEDS ORDERED: CHLORHEXIDINE GLUCONATE 4% CLEANSER FOR DECOLONIZATION TP SCH (22:00)
[2023-04-05] MEDS: MUPIROCIN 2% TOPICAL OINTMENT FOR DECOLONIZATION NS SCH (22:45)
[2023-04-06 07:38] LABS: BASO % 0.7 % (0-2.0); EOS % 2.2 % (0-4.5); HEMATOCRIT 33.2 % (35.4-49); HEMOGLOBIN 10.8 GM/dL (11.7-16.9); LYMPH % 23.5 % (8-40); MCH 31.6 pg (25.7-33.7); MCHC 32.6 g/dl (32.0-35.9); MEAN PLT VOLUME 7.8 fl (7.5-11.1); MONO % 14.5 % (3.8-10.2); NEUT % 59.1 % (42.8-82.8); PLATELET COUNT 332 10^3/uL (134-434); RBC 3.42 M/mm3 (4.00-5.60); RDW 13.4 % (11.9-15.9); WHITE BLOOD COUNT 2.7 K/mm3 (4.0-10.0)
[2023-04-06 08:10] LABS: POTASSIUM 4.7 mmol/L (3.5-5.1)
[2023-04-06 08:15] LABS: ALBUMIN 3.2 g/dl (3.4-5.0); CALCIUM 8.9 mg/dL (8.5-10.1)
[2023-04-06 08:16] LABS: BLOOD UREA NITROGEN 16.6 mg/dL (7-18); MAGNESIUM 2.1 mg/dL (1.8-2.4)
[2023-04-06 08:19] LABS: CREATININE 0.5 mg/dL (0.55-1.3)
[2023-04-06 08:20] LABS: BILIRUBIN,TOTAL 0.9 mg/dL (0.2-1); TOT PROT 6.4 g/dl (6.4-8.2)
[2023-04-06] MEDS: MUPIROCIN 2% TOPICAL OINTMENT FOR DECOLONIZATION NS SCH (09:50)
[2023-04-06] MEDS: ENOXAPARIN NA (PORCINE) 30 MG/0.3 ML DISP.SYRIN SQ SCH (09:50)
[2023-04-06] MEDS: POTASSIUM CHLORIDE 10 MEQ in DEXTROSE 5%-NORMAL SALINE 1,000 ML IVPB SCH ×3 (09:50→20:50)
[2023-04-06] MEDS: PANTOPRAZOLE 40 MG TABLET PO SCH (09:50)
[2023-04-06] MEDS: guaiFENesin 600 MG TABLET.ER (FP) PO SCH ×2 (09:50→21:48)
[2023-04-06] MEDS: BUDESONIDE/FORMETEROL FUMARATE 80/4.5 mcg INHALER IH SCH ×2 (09:51→23:06)
[2023-04-06] MEDS ORDERED: SODIUM CHLORIDE 500 ML IV STA ×2 (11:30→13:59)
[2023-04-06] MEDS ORDERED: POLYETHYLENE GLYCOL (HEALTHYLAX) 3350 17 GM PACKET PO SCH (11:45)
[2023-04-06] MEDS ORDERED: DOCUSATE SODIUM 100 MG CAPSULE (FP) PO SCH (11:45)
[2023-04-06] MEDS: GLYCERIN 1 RECTAL SUPPOSITORY, ADULT RC ONE ×2 (14:19→17:50)
[2023-04-06] MEDS ORDERED: MELATONIN 5 MG TABLETS PO PRN (19:07)
[2023-04-06] MEDS ORDERED: ALBUTEROL SO4 2.5/IPRATROPIUM 0.5 INH SOL 3 ML VIAL.NEB. NEB PRN (19:07)
[2023-04-06] MEDS: POLYETHYLENE GLYCOL (HEALTHYLAX) 3350 17 GM PACKET PO SCH (21:47)
[2023-04-06] MEDS: SENNOSIDES 8.6MG TABLET (FP) PO SCH (21:48)
[2023-04-06] MEDS ORDERED: MUPIROCIN 2% TOPICAL OINTMENT FOR DECOLONIZATION NS SCH (22:00)
[2023-04-06] MEDS ORDERED: CHLORHEXIDINE GLUCONATE 4% CLEANSER FOR DECOLONIZATION TP SCH (22:00)
[2023-04-07 08:01] LABS: HEMATOCRIT 33.5 % (35.4-49); HEMOGLOBIN 11.2 GM/dL (11.7-16.9); MCH 31.5 pg (25.7-33.7); MCHC 33.3 g/dl (32.0-35.9); MEAN CELL VOLUME 94.6 fl (80-96); MEAN PLT VOLUME 7.7 fl (7.5-11.1); PLATELET COUNT 318 10^3/uL (134-434); RBC 3.54 M/mm3 (4.00-5.60); RDW 13.5 % (11.9-15.9)
[2023-04-07 08:16] LABS: POTASSIUM 4.4 mmol/L (3.5-5.1)
[2023-04-07 08:23] LABS: ALBUMIN 3.1 g/dl (3.4-5.0); BLOOD UREA NITROGEN 9.9 mg/dL (7-18); CALCIUM 8.6 mg/dL (8.5-10.1)
[2023-04-07 08:25] LABS: MAGNESIUM 1.8 mg/dL (1.8-2.4)
[2023-04-07 08:27] LABS: CREATININE 0.4 mg/dL (0.55-1.3); PHOSPHOROUS 2.6 mg/dL (2.5-4.9)
[2023-04-07 08:28] LABS: BILIRUBIN,TOTAL 0.6 mg/dL (0.2-1); TOT PROT 6.5 g/dl (6.4-8.2)
[2023-04-07] MEDS: PANTOPRAZOLE 40 MG TABLET PO SCH (09:28)
[2023-04-07] MEDS: guaiFENesin 600 MG TABLET.ER (FP) PO SCH ×2 (09:28→21:27)
[2023-04-07] MEDS: ENOXAPARIN NA (PORCINE) 30 MG/0.3 ML DISP.SYRIN SQ SCH (09:28)
[2023-04-07] MEDS: BUDESONIDE/FORMETEROL FUMARATE 80/4.5 mcg INHALER IH SCH ×2 (09:28→22:19)
[2023-04-07] MEDS: SENNOSIDES 8.6MG TABLET (FP) PO SCH ×2 (09:29→21:28)
[2023-04-07] MEDS: POLYETHYLENE GLYCOL (HEALTHYLAX) 3350 17 GM PACKET PO SCH ×2 (09:29→21:28)
[2023-04-07] MEDS: POTASSIUM CHLORIDE 10 MEQ in DEXTROSE 5%-NORMAL SALINE 1,000 ML IVPB SCH ×2 (17:47→21:28)
[2023-04-08] MEDS: POTASSIUM CHLORIDE 10 MEQ in DEXTROSE 5%-NORMAL SALINE 1,000 ML IVPB SCH (09:16)
[2023-04-08] MEDS: ENOXAPARIN NA (PORCINE) 30 MG/0.3 ML DISP.SYRIN SQ SCH (09:17)
[2023-04-08] MEDS: POLYETHYLENE GLYCOL (HEALTHYLAX) 3350 17 GM PACKET PO SCH (09:17)
[2023-04-08] MEDS: PANTOPRAZOLE 40 MG TABLET PO SCH (09:17)
[2023-04-08] MEDS: SENNOSIDES 8.6MG TABLET (FP) PO SCH (09:17)
[2023-04-08] MEDS: guaiFENesin 600 MG TABLET.ER (FP) PO SCH (09:18)
[2023-04-08] MEDS: BUDESONIDE/FORMETEROL FUMARATE 80/4.5 mcg INHALER IH SCH (09:18)
[2023-04-08 21:24] VITALS: BP 135/80; PULSE 112; RESP 20; TEMP 98.8
== END 2023-04-08 21:10 | DRG 137 ==
LOC: JER 13:03 → JERBED 21:26 → OBSVTOIN 23:32 → JERBED 23:32 → JICU 03-23 01:01 → J4W 03-25 06:45 → J4S 04-01 17:23 → J4W 04-01 17:24 → JICU 04-05 15:09 → J4S 04-06 17:30
PROVIDERS: ATTEND Internal Medicine
PROC: 009U3ZZ Drainage of Spinal Canal, Percutaneous Approach (ICD-10-PCS; principal; 2023-03-27)
PROC: 0BH17EZ Insertion of Endotracheal Airway into Trachea, Via Natural or Artificial Opening (ICD-10-PCS; 2023-03-27)
PROC: 5A1935Z Respiratory Ventilation, Less than 24 Consecutive Hours (ICD-10-PCS; 2023-03-27)
DX: J69.0 Pneumonitis due to inhalation of food and vomit (principal); K21.9 Gastro-esophageal reflux disease without esophagitis; I10 Essential (primary) hypertension; E78.5 Hyperlipidemia, unspecified; R62.7 Adult failure to thrive; Z68.1 Body mass index [BMI] 19.9 or less, adult; J96.02 Acute respiratory failure with hypercapnia; J96.01 Acute respiratory failure with hypoxia; G70.89 Other specified myoneural disorders; E43 Unspecified severe protein-calorie malnutrition; G62.89 Other specified polyneuropathies; R51.9 Headache, unspecified; G97.1 Other reaction to spinal and lumbar puncture; K59.00 Constipation, unspecified; R00.0 Tachycardia, unspecified; R94.5 Abnormal results of liver function studies; D70.9 Neutropenia, unspecified; M54.2 Cervicalgia; E83.39 Other disorders of phosphorus metabolism; R64 Cachexia
CPT/HCPCS: 0241U-QW; 36415; 36600; 70450-TC; 70490-TC; 71045-TC-FY; 71260-TC; 74176-TC; 76705-TC; 80048; 80053; 80307; 81003; 82085; 82550; 82553; 82607; 82746; 82803; 82945; 82962; 83605; 83735; 83916; 84100; 84157; 84443; 84484; 85025; 85027; 85610; 85651; 85730; 86140; 87040; 87070; 87086; 87205; 87635; 93005; 93010; 93306-TC; 94002; 94010; 94640; 94660; 97116-GP; 97163-GP; 99285-25; G0378; J1644; Q9967

== ENCOUNTER 2023-05-04 10:22 | Inpatient (IN) | payer OTHER ==
[2023-05-04] MEDS ORDERED: SODIUM CHLORIDE 0.9% 500 ML INFUS.BAG IV ONE ×3 (11:10→14:26)
[2023-05-04 11:39] LABS: VENOUS BASE EXCESS 15.6 mmol/L (-2-2); VENOUS O2 SATURATION 17.2 % (70-80)
[2023-05-04 11:41] LABS: BASO % 0.3 % (0-2.0); EOS % 0.2 % (0-4.5); HEMATOCRIT 42.9 % (35.4-49); HEMOGLOBIN 13.7 GM/dL (11.7-16.9); LYMPH % 11.5 % (8-40); MCH 32.6 pg (25.7-33.7); MCHC 31.8 g/dl (32.0-35.9); MEAN CELL VOLUME 102.3 fl (80-96); MEAN PLT VOLUME 9.4 fl (7.5-11.1); MONO % 5.4 % (3.8-10.2); NEUT % 82.6 % (42.8-82.8); PLATELET COUNT 116 10^3/uL (134-434); RDW 13.5 % (11.9-15.9); VENOUS PH 7.061 (7.310-7.410); WHITE BLOOD COUNT 5.2 K/mm3 (4.0-10.0)
[2023-05-04 11:42] LABS: VENOUS PCO2 > 148.5 mmHg (38-52)
[2023-05-04 11:47] LABS: INR 0.97 (0.83-1.09); PROTHROMBIN TIME (PATIENT) 11.3 SEC (9.7-13.0)
[2023-05-04 12:03] LABS: CHLORIDE 91 mmol/L (98-107); POTASSIUM 5.2 mmol/L (3.5-5.1); SODIUM 140 mmol/L (136-145)
[2023-05-04 12:07] LABS: ALBUMIN 3.3 g/dl (3.4-5.0); BLOOD UREA NITROGEN 14.8 mg/dL (7-18); CALCIUM 9.5 mg/dL (8.5-10.1); GLUCOSE,RANDOM 114 mg/dL (74-106); LIPASE 91 U/L (73-393)
[2023-05-04 12:10] LABS: CREATININE 0.5 mg/dL (0.55-1.3); SGOT/AST 100 U/L (15-37); SGPT/ALT 175 U/L (13-61)
[2023-05-04 12:11] LABS: BILIRUBIN,TOTAL 0.3 mg/dL (0.2-1); TOT PROT 6.9 g/dl (6.4-8.2)
[2023-05-04 12:12] LABS: ALK PHOS 80 U/L (45-117)
[2023-05-04 12:25] LABS: ANION GAP 4 MMOL/L (8-16); CO2 > 45 mmol/L (21-32)
[2023-05-04 15:16] LABS: URINE APPEARANCE CLEAR; URINE BILIRUBIN NEGATIVE (NEGATIVE); URINE COLOR YELLOW; URINE GLUCOSE (UA) NEGATIVE (NEGATIVE); URINE KETONE NEGATIVE (NEGATIVE); URINE LEUK ESTERASE NEGATIVE (NEGATIVE); URINE NITRITE NEGATIVE (NEGATIVE); URINE PROTEIN TRACE (NEGATIVE); URINE UROBILINOGEN 0.2 mg/dL (0.2-1.0)
[2023-05-04] MEDS ORDERED: HALOPERIDOL LACTATE 5 MG/ML IM ONE ×2 (16:02→16:03)
[2023-05-04] MEDS ORDERED: SODIUM CHLORIDE 1,000 ML IV STA ×3 (16:57→17:43)
[2023-05-04 18:07] LABS: ARTERIAL BLD GAS O2 SATURATION 98.7 % (95-98); ARTERIAL BLOOD GAS BASE EXCESS 9.6 mmol/L (-2-2); ARTERIAL BLOOD GAS PO2 146.1 mmHg (80-100); ARTERIAL BLOOD GAS pH 7.347 (7.350-7.450)
[2023-05-04 18:12] LABS: ALLENS TEST POSITIVE
[2023-05-04 18:15] LABS: VENT RATE 20
[2023-05-04] MEDS ORDERED: LACTULOSE 20 GM/30 ML UDC (FOR RECTAL USE ONLY) PR ONE (19:11)
[2023-05-04] MEDS ORDERED: METOPROLOL TARTRATE 5 MG/5 ML VIAL IVPUSH ONE (21:29)
[2023-05-04] MEDS: MUPIROCIN 2% TOPICAL OINTMENT FOR DECOLONIZATION NS SCH (22:33)
[2023-05-04] MEDS: CHLORHEXIDINE GLUCONATE 4% CLEANSER FOR DECOLONIZATION TP SCH (22:33)
[2023-05-05 07:23] LABS: BASO % 0.1 % (0-2.0); EOS % 0.3 % (0-4.5); HEMATOCRIT 36.8 % (35.4-49); LYMPH % 7.2 % (8-40); MCH 33.3 pg (25.7-33.7); MCHC 32.5 g/dl (32.0-35.9); MEAN CELL VOLUME 102.2 fl (80-96); MEAN PLT VOLUME 9.9 fl (7.5-11.1); MONO % 5.6 % (3.8-10.2); NEUT % 86.8 % (42.8-82.8); PLATELET COUNT 90 10^3/uL (134-434); RDW 13.5 % (11.9-15.9); WHITE BLOOD COUNT 5.2 K/mm3 (4.0-10.0)
[2023-05-05 08:20] LABS: POTASSIUM 4.3 mmol/L (3.5-5.1)
[2023-05-05 08:46] LABS: CALCIUM 8.3 mg/dL (8.5-10.1); MAGNESIUM 1.8 mg/dL (1.8-2.4)
[2023-05-05 08:49] LABS: CREATININE 0.3 mg/dL (0.55-1.3); PHOSPHOROUS 3.4 mg/dL (2.5-4.9)
[2023-05-05 08:51] LABS: BILIRUBIN,TOTAL 0.5 mg/dL (0.2-1); TOT PROT 5.9 g/dl (6.4-8.2)
[2023-05-05 09:48] LABS: ARTERIAL BLD GAS O2 SATURATION 96.6 % (95-98); ARTERIAL BLOOD GAS BASE EXCESS 10.9 mmol/L (-2-2); ARTERIAL BLOOD GAS PO2 96.6 mmHg (80-100); ARTERIAL BLOOD GAS pH 7.332 (7.350-7.450)
[2023-05-05 09:54] LABS: ALLENS TEST POSITIVE
[2023-05-05 09:55] LABS: VENT MODE TPTA
[2023-05-05 09:56] LABS: VENT RATE 16
[2023-05-05] MEDS: ENOXAPARIN NA (PORCINE) 40 MG/0.4 ML DISP.SYRIN SQ SCH (10:00)
[2023-05-05] MEDS: MUPIROCIN 2% TOPICAL OINTMENT FOR DECOLONIZATION NS SCH ×2 (14:00→21:20)
[2023-05-05 15:00] VITALS: BMI 17.6
[2023-05-05] MEDS: CHLORHEXIDINE GLUCONATE 4% CLEANSER FOR DECOLONIZATION TP SCH (21:21)
[2023-05-06 07:43] LABS: HEMATOCRIT 39.4 % (35.4-49); HEMOGLOBIN 12.6 GM/dL (11.7-16.9); MCH 32.3 pg (25.7-33.7); MCHC 31.9 g/dl (32.0-35.9); MEAN CELL VOLUME 101.4 fl (80-96); MEAN PLT VOLUME 9.5 fl (7.5-11.1); PLATELET COUNT 108 10^3/uL (134-434); RBC 3.89 M/mm3 (4.00-5.60); RDW 13.6 % (11.9-15.9); WHITE BLOOD COUNT 4.3 K/mm3 (4.0-10.0)
[2023-05-06 08:05] LABS: CHLORIDE 93 mmol/L (98-107); POTASSIUM 3.7 mmol/L (3.5-5.1); SODIUM 142 mmol/L (136-145)
[2023-05-06 08:09] LABS: CALCIUM 8.9 mg/dL (8.5-10.1)
[2023-05-06 08:10] LABS: BLOOD UREA NITROGEN 7.6 mg/dL (7-18); GLUCOSE,RANDOM 81 mg/dL (74-106); MAGNESIUM 1.9 mg/dL (1.8-2.4)
[2023-05-06 08:12] LABS: CREATININE 0.3 mg/dL (0.55-1.3); PHOSPHOROUS 2.2 mg/dL (2.5-4.9); SGOT/AST 44 U/L (15-37); SGPT/ALT 105 U/L (13-61)
[2023-05-06 08:13] LABS: BILIRUBIN,TOTAL 0.6 mg/dL (0.2-1); TOT PROT 5.9 g/dl (6.4-8.2)
[2023-05-06 08:16] LABS: ALK PHOS 75 U/L (45-117)
[2023-05-06 08:20] LABS: ANION GAP 4 MMOL/L (8-16); CO2 > 45 mmol/L (21-32)
[2023-05-06] MEDS: MULTIVIT-MINERALS ORAL LIQUID PO SCH (09:55)
[2023-05-06] MEDS: ENOXAPARIN NA (PORCINE) 40 MG/0.4 ML DISP.SYRIN SQ SCH (09:55)
[2023-05-06] MEDS: MUPIROCIN 2% TOPICAL OINTMENT FOR DECOLONIZATION NS SCH ×2 (09:55→21:21)
[2023-05-06 12:57] LABS: ARTERIAL BLD GAS O2 SATURATION 99.3 % (95-98); ARTERIAL BLOOD GAS PO2 249.7 mmHg (80-100)
[2023-05-06 13:00] LABS: ALLENS TEST POSITIVE
[2023-05-06 13:02] LABS: ARTERIAL BLOOD GAS pH 7.195 (7.350-7.450)
[2023-05-06] MEDS ORDERED: LACTATED RINGERS SOLUTION 1000 ML INFUS.BAG IV ONE (15:10)
[2023-05-06 16:06] LABS: ARTERIAL BLD GAS O2 SATURATION 97.8 % (95-98); ARTERIAL BLOOD GAS BASE EXCESS 18.2 mmol/L (-2-2); ARTERIAL BLOOD GAS PO2 107.8 mmHg (80-100); ARTERIAL BLOOD GAS pH 7.428 (7.350-7.450)
[2023-05-06 16:27] LABS: VENT RATE 16
[2023-05-06] MEDS: CHLORHEXIDINE GLUCONATE 4% CLEANSER FOR DECOLONIZATION TP SCH (21:23)
[2023-05-07 07:26] LABS: BASO % 0.3 % (0-2.0); EOS % 1.7 % (0-4.5); HEMATOCRIT 32.1 % (35.4-49); HEMOGLOBIN 10.6 GM/dL (11.7-16.9); LYMPH % 30.4 % (8-40); MCH 33.2 pg (25.7-33.7); MEAN CELL VOLUME 100.6 fl (80-96); MEAN PLT VOLUME 9.3 fl (7.5-11.1); MONO % 13.8 % (3.8-10.2); NEUT % 53.8 % (42.8-82.8); PLATELET COUNT 94 10^3/uL (134-434); RBC 3.19 M/mm3 (4.00-5.60); RDW 13.3 % (11.9-15.9); WHITE BLOOD COUNT 3.2 K/mm3 (4.0-10.0)
[2023-05-07 07:32] LABS: MAGNESIUM 1.9 mg/dL (1.8-2.4)
[2023-05-07 07:37] LABS: PHOSPHOROUS 1.4 mg/dL (2.5-4.9)
[2023-05-07] MEDS ORDERED: ALBUTEROL SO4 2.5/IPRATROPIUM 0.5 INH SOL 3 ML VIAL.NEB. NEB ONE (10:15)
[2023-05-07] MEDS: NAPH,MB-DB/K PH,MBDB POWDER PACKET PO SCH ×3 (11:08→21:43)
[2023-05-07] MEDS: MULTIVIT-MINERALS ORAL LIQUID PO SCH (11:08)
[2023-05-07] MEDS: MUPIROCIN 2% TOPICAL OINTMENT FOR DECOLONIZATION NS SCH ×2 (11:12→21:41)
[2023-05-07] MEDS: ENOXAPARIN NA (PORCINE) 40 MG/0.4 ML DISP.SYRIN SQ SCH (11:12)
[2023-05-07] MEDS ORDERED: SIMETHICONE 80 MG TAB.CHEW (FP) PO PRN (14:00)
[2023-05-07] MEDS: POLYETHYLENE GLYCOL (HEALTHYLAX) 3350 17 GM PACKET PO SCH ×2 (14:54→21:43)
[2023-05-07] MEDS: ALBUTEROL SO4 2.5/IPRATROPIUM 0.5 INH SOL 3 ML VIAL.NEB. NEB PRN (20:31)
[2023-05-07] MEDS: CHLORHEXIDINE GLUCONATE 4% CLEANSER FOR DECOLONIZATION TP SCH (21:42)
[2023-05-08 07:50] LABS: HEMATOCRIT 33.4 % (35.4-49); HEMOGLOBIN 11.2 GM/dL (11.7-16.9); MCH 33.3 pg (25.7-33.7); MCHC 33.5 g/dl (32.0-35.9); MEAN CELL VOLUME 99.5 fl (80-96); MEAN PLT VOLUME 9.3 fl (7.5-11.1); PLATELET COUNT 106 10^3/uL (134-434); RBC 3.35 M/mm3 (4.00-5.60); RDW 13.4 % (11.9-15.9); WHITE BLOOD COUNT 2.7 K/mm3 (4.0-10.0)
[2023-05-08 08:06] LABS: POTASSIUM 3.6 mmol/L (3.5-5.1)
[2023-05-08 08:09] LABS: ALBUMIN 2.8 g/dl (3.4-5.0); CALCIUM 8.2 mg/dL (8.5-10.1)
[2023-05-08 08:13] LABS: CREATININE 0.4 mg/dL (0.55-1.3)
[2023-05-08 08:14] LABS: BILIRUBIN,TOTAL 0.8 mg/dL (0.2-1); TOT PROT 5.3 g/dl (6.4-8.2)
[2023-05-08] MEDS: ENOXAPARIN NA (PORCINE) 40 MG/0.4 ML DISP.SYRIN SQ SCH (09:02)
[2023-05-08] MEDS: POLYETHYLENE GLYCOL (HEALTHYLAX) 3350 17 GM PACKET PO SCH ×2 (09:03→21:38)
[2023-05-08] MEDS: MUPIROCIN 2% TOPICAL OINTMENT FOR DECOLONIZATION NS SCH ×2 (09:04→21:37)
[2023-05-08] MEDS: MULTIVIT-MINERALS ORAL LIQUID PO SCH (09:17)
[2023-05-08] MEDS: CHLORHEXIDINE GLUCONATE 4% CLEANSER FOR DECOLONIZATION TP SCH (21:38)
[2023-05-09 08:00] LABS: BASO % 0.5 % (0-2.0); EOS % 2.2 % (0-4.5); HEMOGLOBIN 11.6 GM/dL (11.7-16.9); LYMPH % 43.3 % (8-40); MCH 33.3 pg (25.7-33.7); MCHC 33.2 g/dl (32.0-35.9); MEAN CELL VOLUME 100.5 fl (80-96); MEAN PLT VOLUME 9.2 fl (7.5-11.1); MONO % 13.5 % (3.8-10.2); NEUT % 40.5 % (42.8-82.8); PLATELET COUNT 125 10^3/uL (134-434); RBC 3.48 M/mm3 (4.00-5.60); RDW 13.6 % (11.9-15.9); WHITE BLOOD COUNT 2.7 K/mm3 (4.0-10.0)
[2023-05-09 08:21] LABS: BLOOD UREA NITROGEN 14.4 mg/dL (7-18); CALCIUM 8.6 mg/dL (8.5-10.1)
[2023-05-09 08:25] LABS: CREATININE 0.4 mg/dL (0.55-1.3)
[2023-05-09] MEDS: POLYETHYLENE GLYCOL (HEALTHYLAX) 3350 17 GM PACKET PO SCH ×2 (10:17→21:19)
[2023-05-09] MEDS: MULTIVIT-MINERALS ORAL LIQUID PO SCH (10:17)
[2023-05-09] MEDS: ENOXAPARIN NA (PORCINE) 40 MG/0.4 ML DISP.SYRIN SQ SCH (10:19)
[2023-05-09] MEDS: MUPIROCIN 2% TOPICAL OINTMENT FOR DECOLONIZATION NS SCH (10:20)
[2023-05-09] MEDS: ALBUTEROL SO4 2.5/IPRATROPIUM 0.5 INH SOL 3 ML VIAL.NEB. NEB PRN ×2 (15:13→21:06)
[2023-05-09] MEDS: CHLORHEXIDINE GLUCONATE 4% CLEANSER FOR DECOLONIZATION TP SCH (21:20)
[2023-05-10] MEDS: ALBUTEROL SO4 2.5/IPRATROPIUM 0.5 INH SOL 3 ML VIAL.NEB. NEB PRN ×2 (02:51→19:48)
[2023-05-10] MEDS: POLYETHYLENE GLYCOL (HEALTHYLAX) 3350 17 GM PACKET PO SCH ×2 (10:21→21:40)
[2023-05-10] MEDS: ENOXAPARIN NA (PORCINE) 40 MG/0.4 ML DISP.SYRIN SQ SCH (10:21)
[2023-05-10] MEDS: MULTIVIT-MINERALS ORAL LIQUID PO SCH (10:21)
[2023-05-10] MEDS: CHLORHEXIDINE GLUCONATE 4% CLEANSER FOR DECOLONIZATION TP SCH (21:41)
[2023-05-11] MEDS: POLYETHYLENE GLYCOL (HEALTHYLAX) 3350 17 GM PACKET PO SCH ×2 (11:00→21:26)
[2023-05-11] MEDS: ENOXAPARIN NA (PORCINE) 40 MG/0.4 ML DISP.SYRIN SQ SCH (11:00)
[2023-05-11] MEDS: MULTIVIT-MINERALS ORAL LIQUID PO SCH (11:00)
[2023-05-11] MEDS: ALBUTEROL SO4 2.5/IPRATROPIUM 0.5 INH SOL 3 ML VIAL.NEB. NEB PRN (19:58)
[2023-05-11] MEDS: CHLORHEXIDINE GLUCONATE 4% CLEANSER FOR DECOLONIZATION TP SCH (21:26)
[2023-05-11] MEDS ORDERED: SIMETHICONE 80 MG TAB.CHEW (FP) PO PRN (22:16)
[2023-05-11] MEDS ORDERED: LACTULOSE 20 GM/30 ML UDC (FOR RECTAL USE ONLY) PR ONE (23:00)
[2023-05-12] MEDS: ALBUTEROL SO4 2.5/IPRATROPIUM 0.5 INH SOL 3 ML VIAL.NEB. NEB PRN (07:50)
[2023-05-12] MEDS: ENOXAPARIN NA (PORCINE) 40 MG/0.4 ML DISP.SYRIN SQ SCH (11:23)
[2023-05-12] MEDS: POLYETHYLENE GLYCOL (HEALTHYLAX) 3350 17 GM PACKET PO SCH ×2 (11:24→22:04)
[2023-05-12] MEDS: MULTIVIT-MINERALS ORAL LIQUID PO SCH (11:24)
[2023-05-12] MEDS: AMINO ACIDS/PROTEIN HYDROLYS 30 ML LIQUID.PKT PO SCH (18:40)
[2023-05-13] MEDS: AMINO ACIDS/PROTEIN HYDROLYS 30 ML LIQUID.PKT PO SCH ×2 (08:37→16:57)
[2023-05-13] MEDS: ENOXAPARIN NA (PORCINE) 40 MG/0.4 ML DISP.SYRIN SQ SCH (09:51)
[2023-05-13] MEDS: ASCORBIC ACID 500 MG TABLET (FP) PO SCH (09:51)
[2023-05-13] MEDS: MULTIVIT-MINERALS ORAL LIQUID PO SCH (09:51)
[2023-05-13] MEDS: POLYETHYLENE GLYCOL (HEALTHYLAX) 3350 17 GM PACKET PO SCH ×3 (09:52→21:45)
[2023-05-14 08:40] LABS: HEMATOCRIT 33.8 % (35.4-49); HEMOGLOBIN 11.2 GM/dL (11.7-16.9); MCH 33.4 pg (25.7-33.7); MEAN CELL VOLUME 101.1 fl (80-96); PLATELET COUNT 221 10^3/uL (134-434); RBC 3.34 M/mm3 (4.00-5.60); RDW 13.9 % (11.9-15.9); WHITE BLOOD COUNT 2.9 K/mm3 (4.0-10.0)
[2023-05-14 08:46] LABS: CALCIUM 8.7 mg/dL (8.5-10.1)
[2023-05-14 08:47] LABS: BLOOD UREA NITROGEN 15.4 mg/dL (7-18)
[2023-05-14 08:50] LABS: CREATININE 0.4 mg/dL (0.55-1.3)
[2023-05-14 08:51] LABS: BILIRUBIN,TOTAL 0.4 mg/dL (0.2-1); TOT PROT 5.9 g/dl (6.4-8.2)
[2023-05-14] MEDS: MULTIVIT-MINERALS ORAL LIQUID PO SCH (09:08)
[2023-05-14] MEDS: ASCORBIC ACID 500 MG TABLET (FP) PO SCH (09:08)
[2023-05-14] MEDS: POLYETHYLENE GLYCOL (HEALTHYLAX) 3350 17 GM PACKET PO SCH ×2 (09:08→21:48)
[2023-05-14] MEDS: AMINO ACIDS/PROTEIN HYDROLYS 30 ML LIQUID.PKT PO SCH ×2 (09:08→17:05)
[2023-05-14] MEDS: ENOXAPARIN NA (PORCINE) 40 MG/0.4 ML DISP.SYRIN SQ SCH (09:08)
[2023-05-15] MEDS: ENOXAPARIN NA (PORCINE) 40 MG/0.4 ML DISP.SYRIN SQ SCH (09:09)
[2023-05-15] MEDS: POLYETHYLENE GLYCOL (HEALTHYLAX) 3350 17 GM PACKET PO SCH ×2 (09:09→21:40)
[2023-05-15] MEDS: AMINO ACIDS/PROTEIN HYDROLYS 30 ML LIQUID.PKT PO SCH ×2 (09:10→17:08)
[2023-05-15] MEDS: ASCORBIC ACID 500 MG TABLET (FP) PO SCH (09:10)
[2023-05-15] MEDS: MULTIVIT-MINERALS ORAL LIQUID PO SCH (09:10)
[2023-05-15] MEDS: ALBUTEROL SO4 2.5/IPRATROPIUM 0.5 INH SOL 3 ML VIAL.NEB. NEB PRN (20:30)
[2023-05-16] MEDS: AMINO ACIDS/PROTEIN HYDROLYS 30 ML LIQUID.PKT PO SCH ×2 (08:49→18:09)
[2023-05-16] MEDS: ASCORBIC ACID 500 MG TABLET (FP) PO SCH (10:35)
[2023-05-16] MEDS: POLYETHYLENE GLYCOL (HEALTHYLAX) 3350 17 GM PACKET PO SCH ×2 (10:35→22:58)
[2023-05-16] MEDS: ENOXAPARIN NA (PORCINE) 40 MG/0.4 ML DISP.SYRIN SQ SCH (10:35)
[2023-05-16] MEDS: MULTIVIT-MINERALS ORAL LIQUID PO SCH (10:35)
[2023-05-16 22:39] VITALS: RESP 18
[2023-05-17 06:52] VITALS: BP 111/69; PULSE 79; TEMP 98.6
[2023-05-17] MEDS: AMINO ACIDS/PROTEIN HYDROLYS 30 ML LIQUID.PKT PO SCH (08:27)
[2023-05-17] MEDS: ENOXAPARIN NA (PORCINE) 40 MG/0.4 ML DISP.SYRIN SQ SCH (10:51)
[2023-05-17] MEDS: POLYETHYLENE GLYCOL (HEALTHYLAX) 3350 17 GM PACKET PO SCH (10:51)
[2023-05-17] MEDS: MULTIVIT-MINERALS ORAL LIQUID PO SCH (10:51)
[2023-05-17] MEDS: ASCORBIC ACID 500 MG TABLET (FP) PO SCH (10:51)
== END 2023-05-17 13:26 | disposition home health service (06) | DRG 133 ==
LOC: JER 10:22 → JICU 18:52 → J7W 05-11 22:12
PROVIDERS: ADMIT Internal Medicine Pulmonary Disease; ATTEND Family Medicine
DX: J96.22 Acute and chronic respiratory failure with hypercapnia (principal); K21.9 Gastro-esophageal reflux disease without esophagitis; I10 Essential (primary) hypertension; R64 Cachexia; Z68.1 Body mass index [BMI] 19.9 or less, adult; E43 Unspecified severe protein-calorie malnutrition; R62.7 Adult failure to thrive; R41.82 Altered mental status, unspecified; R53.1 Weakness; G62.9 Polyneuropathy, unspecified; D69.6 Thrombocytopenia, unspecified; R94.5 Abnormal results of liver function studies; G93.41 Metabolic encephalopathy; K44.9 Diaphragmatic hernia without obstruction or gangrene
CPT/HCPCS: 0241U-QW; 36415; 36600; 70450-TC; 71045-TC-FY; 71046-TC-FY; 73030-TC-RT-FY; 73502-TC-RT-FY; 80048; 80053; 81003; 82140; 82803; 82962; 83605; 83690; 83735; 84100; 84443; 84484; 85025; 85027; 85610; 87040; 87086; 93005; 93010; 94640; 94660; 94761; 97116-GP; 97161-GP; 99285-25